=== PATIENT | female | born 1965 | race Caucasian/White ===

== ENCOUNTER 2017-05-11 14:50 | Outpatient (CLI) | payer OTHER ==
[~2017-05-11 14:50] MED LIST: ALPR-624 PO; CHOL2000 PO; CLOP75TA15 PO; FENO145T19 PO; INSU200I; INSU200I4 SQ; LEVO100T9 PO; LISI-642 PO; METF500T PO; METO50TA7 PO; NITR0.4T51 SL; PANT-47 PO; PIOG45TA5 PO; ROSU40TA PO; TRAM50TA2 PO
== END 2017-05-11 23:59 | disposition home or self-care (01) ==
LOC: VAS 14:50
PROVIDERS: ATTEND Internal Medicine Cardiovascular Disease
DX: M79.601 Pain in right arm (principal); R20.0 Anesthesia of skin; Z98.890 Other specified postprocedural states
CPT/HCPCS: 93931

== ENCOUNTER 2017-05-16 07:57 | Emergency (ER) | payer OTHER ==
[~2017-05-16] VITALS: Ht 154.9 cm; Wt 99.6 kg
[2017-05-16 08:46] LABS: BASOPHILS % (AUTO) 0.4 % (0-1); EOSINOPHILS # (AUTO) 0.1 X10'3 (0-0.9); EOSINOPHILS % (AUTO) 1.4 % (0-6); HEMATOCRIT 33.7 % (35.0-45.0); HEMOGLOBIN 11.3 g/dl (12.0-16.0); LYMPHOCYTES # (AUTO) 1.6 X10'3 (1.1-4.8); LYMPHOCYTES % (AUTO) 26.8 % (21-51); MEAN CORPUSCULAR HEMOGLOBIN 25.3 PG (27.0-31.0); MEAN CORPUSCULAR HGB CONC 33.5 % (33.0-36.5); MEAN CORPUSCULAR VOLUME 75.7 FL (78-98); MEAN PLATELET VOLUME 7.3 FL (7.4-10.4); MONOCYTES # (AUTO) 0.3 X10'3 (0-0.9); MONOCYTES % (AUTO) 5.5 % (2-12); NEUTROPHILS # (AUTO) 3.9 X10'3 (1.8-7.7); NEUTROPHILS % (AUTO) 65.9 % (42-75); PLATELET COUNT 290 X10'3 (140-440); RED BLOOD COUNT 4.45 X10'6 (4.20-5.60); RED CELL DISTRIBUTION WIDTH 16.9 % (11.5-14.5); WHITE BLOOD COUNT 5.9 X10'3 (4.5-11.0)
[2017-05-16 09:00] LABS: PARTIAL THROMBOPLASTIN TIME 29 SECONDS (22-32); PROTHROMBIN TIME 10.6 SECONDS (9.0-12.0)
[2017-05-16] MEDS ORDERED: diphenhydrAMINE 50 mg/ml inj IV ONE (09:05)
[2017-05-16 09:11] LABS: ALANINE AMINOTRANSFERASE 25 U/L (12-78); ALBUMIN 3.6 G/DL (3.4-5.0); ALKALINE PHOSPHATASE 40 IU/L (46-116); ANION GAP 6 (8-16); ASPARTATE AMINO TRANSFERASE 28 U/L (10-37); BILIRUBIN,TOTAL 0.3 MG/DL (0.1-1.0); BLOOD UREA NITROGEN 16 MG/DL (7-18); CALCIUM 9.2 MG/DL (8.5-10.1); CHLORIDE 105 MMOL/L (99-107); CREATININE 0.89 MG/DL (0.40-0.90); GLUCOSE 156 MG/DL (70-104); POTASSIUM 4.5 MMOL/L (3.5-5.1); SODIUM 139 MMOL/L (135-145); TOTAL CARBON DIOXIDE 27.7 MMOL/L (24-32); TOTAL PROTEIN 7.1 G/DL (6.4-8.2); eGFR 67 ML/MIN
[2017-05-16] MEDS ORDERED: iohexol 350MG/ML 100ml bottle IV ONE (09:31)
[2017-05-16] MEDS ORDERED: MESSAGE TO NURSING PO NR (09:56)
[2017-05-16] MEDS ORDERED: IBUP-1984 PO (10:36)
[2017-05-16 10:50] VITALS: BP 99/52
== END 2017-05-16 10:52 | disposition home or self-care (01) ==
LOC: ER 07:58
DX: R07.89 Other chest pain (principal); I25.10 Atherosclerotic heart disease of native coronary artery without angina pectoris; E78.00 Pure hypercholesterolemia, unspecified; I10 Essential (primary) hypertension; E11.9 Type 2 diabetes mellitus without complications; G89.29 Other chronic pain; Z90.49 Acquired absence of other specified parts of digestive tract; Z90.710 Acquired absence of both cervix and uterus; Z60.2 Problems related to living alone; Z91.013 Allergy to seafood; Z88.8 Allergy status to other drugs, medicaments and biological substances; Z79.84 Long term (current) use of oral hypoglycemic drugs; Z79.899 Other long term (current) drug therapy
CPT/HCPCS: 36415; 71275; 80053; 84484; 85025; 85610; 85730; 93005; 96374; 99285; J1200; J7030; Q9967

== ENCOUNTER 2017-10-08 14:40 | Emergency (ER) | payer OTHER ==
[~2017-10-08] VITALS: Ht 545.9 cm; Wt 106.0 kg
[~2017-10-08 14:40] MED LIST changes: -FENO145T19 PO; +FENO145T36 PO
[2017-10-08 14:43] VITALS: BP 121/73
== END 2017-10-08 15:25 | disposition home or self-care (01) ==
LOC: ER 14:41
DX: S60.222A Contusion of left hand, initial encounter (principal); I25.10 Atherosclerotic heart disease of native coronary artery without angina pectoris; E78.00 Pure hypercholesterolemia, unspecified; I10 Essential (primary) hypertension; E11.9 Type 2 diabetes mellitus without complications; Z90.49 Acquired absence of other specified parts of digestive tract; Z90.710 Acquired absence of both cervix and uterus; Z90.89 Acquired absence of other organs; Z98.890 Other specified postprocedural states; Z98.61 Coronary angioplasty status; Z60.2 Problems related to living alone; Z91.013 Allergy to seafood; Z79.4 Long term (current) use of insulin; Z79.899 Other long term (current) drug therapy; W01.0XXA Fall on same level from slipping, tripping and stumbling without subsequent striking against object, initial encounter; Y93.89 Activity, other specified; Y92.89 Other specified places as the place of occurrence of the external cause; Y99.8 Other external cause status; Z88.8 Allergy status to other drugs, medicaments and biological substances
CPT/HCPCS: 73130; 99284

== ENCOUNTER 2017-11-10 21:30 | Emergency (ER) | payer OTHER ==
[~2017-11-10] VITALS: Ht 154.9 cm; Wt 100.4 kg
[2017-11-10 21:55] VITALS: BP 149/71
[2017-11-10] MEDS ORDERED: GUAI10SY2 PO (23:20)
== END 2017-11-10 23:30 | disposition home or self-care (01) ==
LOC: ER 21:30
DX: J20.9 Acute bronchitis, unspecified (principal); J04.0 Acute laryngitis; I25.10 Atherosclerotic heart disease of native coronary artery without angina pectoris; E78.00 Pure hypercholesterolemia, unspecified; I10 Essential (primary) hypertension; E11.9 Type 2 diabetes mellitus without complications; G89.29 Other chronic pain; F41.9 Anxiety disorder, unspecified; Z90.49 Acquired absence of other specified parts of digestive tract; Z90.710 Acquired absence of both cervix and uterus; Z88.8 Allergy status to other drugs, medicaments and biological substances
CPT/HCPCS: 71045; 99283

== ENCOUNTER 2017-12-13 12:53 | Inpatient (IN) | payer OTHER ==
[~2017-12-13] VITALS: Ht 152.4 cm; Wt 109.5 kg
[2017-12-13 13:14] LABS: BASOPHILS % (AUTO) 0.5 % (0-1); EOSINOPHILS # (AUTO) 0.1 X10'3 (0-0.9); EOSINOPHILS % (AUTO) 1.4 % (0-6); HEMATOCRIT 37.9 % (35.0-45.0); HEMOGLOBIN 12.7 g/dl (12.0-16.0); LYMPHOCYTES # (AUTO) 2.6 X10'3 (1.1-4.8); LYMPHOCYTES % (AUTO) 40.5 % (21-51); MEAN CORPUSCULAR HEMOGLOBIN 26.4 PG (27.0-31.0); MEAN CORPUSCULAR HGB CONC 33.4 % (33.0-36.5); MEAN CORPUSCULAR VOLUME 78.8 FL (78-98); MEAN PLATELET VOLUME 7.4 FL (7.4-10.4); MONOCYTES # (AUTO) 0.4 X10'3 (0-0.9); MONOCYTES % (AUTO) 5.9 % (2-12); NEUTROPHILS # (AUTO) 3.3 X10'3 (1.8-7.7); NEUTROPHILS % (AUTO) 51.7 % (42-75); PLATELET COUNT 362 X10'3 (140-440); RED BLOOD COUNT 4.81 X10'6 (4.20-5.60); RED CELL DISTRIBUTION WIDTH 15.9 % (11.5-14.5); WHITE BLOOD COUNT 6.4 X10'3 (4.5-11.0)
[2017-12-13 13:28] LABS: INR 0.9 INR; PARTIAL THROMBOPLASTIN TIME 24 SECONDS (22-32); PROTHROMBIN TIME 9.7 SECONDS (9.0-12.0)
[2017-12-13 13:40] LABS: ALANINE AMINOTRANSFERASE 83 U/L (12-78); ALBUMIN 3.7 G/DL (3.4-5.0); ALKALINE PHOSPHATASE 71 IU/L (46-116); ANION GAP 11 (8-16); ASPARTATE AMINO TRANSFERASE 120 U/L (10-37); BILIRUBIN,TOTAL 0.3 MG/DL (0.1-1.0); BLOOD UREA NITROGEN 12 MG/DL (7-18); BUN/CREATININE RATIO 12.8 (6.6-38.0); CALCIUM 9.5 MG/DL (8.5-10.1); CHLORIDE 101 MMOL/L (99-107); CREATININE 0.94 MG/DL (0.40-0.90); GLUCOSE 156 MG/DL (70-104); POTASSIUM 4.1 MMOL/L (3.5-5.1); SODIUM 139 MMOL/L (135-145); TOTAL CARBON DIOXIDE 26.9 MMOL/L (24-32); TOTAL PROTEIN 7.3 G/DL (6.4-8.2); eGFR 63 ML/MIN
[2017-12-13] MEDS ORDERED: ketorolac trometh. 30mg/ml inj. IV ONE (13:45)
[2017-12-13] MEDS ORDERED: ASPI-1265 PO (15:35)
[2017-12-13] MEDS ORDERED: CHOL400C8 PO (15:35)
[2017-12-13] MEDS ORDERED: ALPR-624 PO (15:35)
[2017-12-13] MEDS ORDERED: LEVO300T2 PO (15:35)
[2017-12-13] MEDS ORDERED: DULO60CA45 PO (15:35)
[2017-12-13] MEDS ORDERED: nitroGLYCERIN 0.4mg SUBLingual tab SL PRN ×2 (16:20→16:35)
[2017-12-13] MEDS ORDERED: potassium Cl 20 mEq SR tablet PO PRN ×2 (16:20)
[2017-12-13] MEDS ORDERED: mag hydrox/Alum hydrox/simeth 30ml oral suspension PO PRN (16:20)
[2017-12-13] MEDS ORDERED: magnesium 4gm in 100ml NS 100 ML IV PRN (16:20)
[2017-12-13] MEDS ORDERED: magnesium hydroxide 30ml (MOM) UD suspension PO PRN (16:20)
[2017-12-13] MEDS ORDERED: acetaminophen 325mg tablet PO PRN ×2 (16:20)
[2017-12-13] MEDS ORDERED: magnesium 1gm/100ml D5W IVPB 100 ML IV PRN (16:20)
[2017-12-13] MEDS ORDERED: magnesium Cl slow-release 64mg tablet PO PRN (16:20)
[2017-12-13] MEDS ORDERED: ondansetron/PF 4mg/2ml inj IV PRN (16:20)
[2017-12-13] MEDS ORDERED: morphine 2 MG/ML inj. syringe IV PRN (16:20)
[2017-12-13] MEDS ORDERED: potassium Cl 40MEQ/NS 500ml 500 ML IV PRN ×2 (16:20)
[2017-12-13] MEDS ORDERED: glucagon, human recombinant 1mg kit SUBCUT PRN (16:35)
[2017-12-13] MEDS ORDERED: dextrose 50%-water 50ml dispensing syringe IV PRN ×2 (16:35)
[2017-12-13] MEDS ORDERED: MESSAGE TO PHARMACY PO ONE (16:35)
[2017-12-13] MEDS ORDERED: dextrose ORAL solution 15 GM/59 ML bottle PO PRN ×2 (16:35)
[2017-12-13] MEDS: normal saline 1000ml 1,000 ML IV SCH (16:46)
[2017-12-13 16:57] LABS: HEMOGLOBIN A1C 11.6 % (4.5-6.2)
[2017-12-13 17:15] LABS: H PYLORI ANTIBODY NEGATIVE (Neg)
[2017-12-13] MEDS: isosorbide mononitrate 30mg tab.SR.24H PO SCH (17:36)
[2017-12-13] MEDS: pantoprazole 40mg Tablet.DR PO SCH (17:37)
[2017-12-13 18:53] VITALS: BP 101/33
[2017-12-13 19:03] LABS: MAGNESIUM 1.8 MG/DL (1.5-2.4)
[2017-12-13] MEDS: duloxetine 30mg CAPSULE.DR PO SCH (20:37)
[2017-12-13] MEDS: ALPRAZolam 0.5mg tablet PO SCH (20:37)
[2017-12-13] MEDS ORDERED: temazepam 15mg capsule PO PRN (21:00)
[2017-12-13] MEDS: insulin glargine (Lantus) pen - multi-dose SQ SCH (21:00)
[2017-12-13] MEDS: morphine 2 MG/ML inj. syringe IV PRN (21:58)
[2017-12-13 23:00] VITALS: BP 94/44
[2017-12-14] VITALS (14 sets, daily range): BP systolic 90–121; BP diastolic 43–76
[2017-12-14] MEDS: traMADol 50MG tablet PO PRN ×3 (01:24→22:09)
[2017-12-14 02:12] LABS: HEMATOCRIT 31.3 % (35.0-45.0); HEMOGLOBIN 10.4 g/dl (12.0-16.0); MEAN CORPUSCULAR HGB CONC 33.1 % (33.0-36.5); MEAN CORPUSCULAR VOLUME 78.7 FL (78-98); MEAN PLATELET VOLUME 7.8 FL (7.4-10.4); PLATELET COUNT 254 X10'3 (140-440); RED BLOOD COUNT 3.98 X10'6 (4.20-5.60); RED CELL DISTRIBUTION WIDTH 15.8 % (11.5-14.5); WHITE BLOOD COUNT 4.4 X10'3 (4.5-11.0)
[2017-12-14 02:31] LABS: ALBUMIN 2.9 G/DL (3.4-5.0); ANION GAP 8 (8-16); BLOOD UREA NITROGEN 21 MG/DL (7-18); BUN/CREATININE RATIO 21.4 (6.6-38.0); CALCIUM 8.8 MG/DL (8.5-10.1); CHLORIDE 102 MMOL/L (99-107); CHOL/HDL RATIO 6.3 (0.00-4.99); CHOLESTEROL 171 MG/DL (0-200); CREATININE 0.98 MG/DL (0.40-0.90); GLUCOSE 332 MG/DL (70-104); HDL CHOLESTEROL 27 MG/DL (35-60); LDL CHOLESTEROL 114 MG/DL (50-100); MAGNESIUM 1.6 MG/DL (1.5-2.4); POTASSIUM 4.2 MMOL/L (3.5-5.1); SODIUM 138 MMOL/L (135-145); TOTAL CARBON DIOXIDE 27.9 MMOL/L (24-32); TRIGLYCERIDES 224 MG/DL (20-135); eGFR 60 ML/MIN
[2017-12-14] MEDS ORDERED: pantoprazole 40mg Tablet.DR PO SCH (08:00)
[2017-12-14] MEDS: aspirin 81mg tablet.DR PO SCH (08:00)
[2017-12-14] MEDS: K and/or MAG REPLACEMENT MC SCH (08:00)
[2017-12-14] MEDS: fenofibrate 145mg tablet PO SCH (08:57)
[2017-12-14] MEDS: metoprolol succinate 25mg (24-HOUR) SR. Tablet PO SCH (08:58)
[2017-12-14] MEDS: duloxetine 30mg CAPSULE.DR PO SCH ×2 (08:59→21:55)
[2017-12-14] MEDS: isosorbide mononitrate 30mg tab.SR.24H PO SCH (09:00)
[2017-12-14] MEDS: pioglitazone 45mg tablet PO SCH (09:00)
[2017-12-14] MEDS: clopidogrel 75mg tablet PO SCH (09:00)
[2017-12-14] MEDS: atorvastatin 20mg tablet PO SCH (09:00)
[2017-12-14] MEDS: lisinopril 2.5mg tablet PO SCH (09:01)
[2017-12-14] MEDS: ALPRAZolam 0.5mg tablet PO SCH ×2 (09:01→21:56)
[2017-12-14] MEDS: pantoprazole 40mg Tablet.DR PO SCH (09:08)
[2017-12-14] MEDS: levoTHYROXINE 100mcg tablet PO SCH (09:09)
[2017-12-14] MEDS: insulin Lispro (HumaLOG) vial - multi-dose SQ SCH ×3 (09:22→22:03)
[2017-12-14] MEDS: morphine 2 MG/ML inj. syringe IV PRN ×2 (10:49→18:21)
[2017-12-14] MEDS ORDERED: fentaNYL/PF 50MCG/1 ML 2ML syringe ONE (15:55)
[2017-12-14] MEDS ORDERED: heparin 1,000unit/ml 10ml vial 10 ML ONE (15:56)
[2017-12-14] MEDS ORDERED: midazolam 2 mg/2 ml injection ONE (15:56)
[2017-12-14] MEDS ORDERED: iohexol 350MG/ML 100ml bottle IV ONE (15:56)
[2017-12-14] MEDS ORDERED: nitroGLYCERIN-Tridil 50MG/D5W 250 ML IV ONE (15:56)
[2017-12-14] MEDS ORDERED: iohexol 350 MG/ML 50ML vial IV ONE (15:56)
[2017-12-14] MEDS ORDERED: LIDOcaine 1% w/EPI 1:100,000 30ml vial (MDV) ONE (15:58)
[2017-12-14] MEDS ORDERED: hydrocortisone sod succ/PF 100mg/2ml inj. ONE (16:50)
[2017-12-14] MEDS ORDERED: diphenhydrAMINE 50 mg/ml inj ONE (16:50)
[2017-12-14] MEDS ORDERED: OXAZEpam 15mg capsule PO PRN (18:55)
[2017-12-14] MEDS ORDERED: HYDROcodone/acetaminophen 10/325mg tab PO PRN (18:55)
[2017-12-14] MEDS ORDERED: HYDROcodone/acetaminophen 5mg/325mg tablet PO PRN (18:55)
[2017-12-14] MEDS: insulin glargine (Lantus) pen - multi-dose SQ SCH (22:01)
[2017-12-14] MEDS: normal saline 1000ml 1,000 ML IV SCH (22:57)
[2017-12-15 01:45] VITALS: BP 103/60
[2017-12-15 03:00] VITALS: BP 102/37
[2017-12-15 05:46] VITALS: BP 116/58
[2017-12-15 05:54] LABS: HEMATOCRIT 31.9 % (35.0-45.0); HEMOGLOBIN 10.6 g/dl (12.0-16.0); MEAN CORPUSCULAR HEMOGLOBIN 26.1 PG (27.0-31.0); MEAN CORPUSCULAR HGB CONC 33.2 % (33.0-36.5); MEAN CORPUSCULAR VOLUME 78.6 FL (78-98); PLATELET COUNT 181 X10'3 (140-440); RED BLOOD COUNT 4.06 X10'6 (4.20-5.60); RED CELL DISTRIBUTION WIDTH 16.2 % (11.5-14.5)
[2017-12-15 06:00] VITALS: BP 104/46
[2017-12-15 06:14] LABS: ALANINE AMINOTRANSFERASE 60 U/L (12-78); ALBUMIN 2.9 G/DL (3.4-5.0); ALBUMIN/GLOBULIN RATIO 0.9 (1.1-1.5); ALKALINE PHOSPHATASE 60 IU/L (46-116); ANION GAP 10 (8-16); ASPARTATE AMINO TRANSFERASE 69 U/L (10-37); BILIRUBIN,TOTAL 0.3 MG/DL (0.1-1.0); BLOOD UREA NITROGEN 14 MG/DL (7-18); BUN/CREATININE RATIO 19.2 (6.6-38.0); CALCIUM 8.5 MG/DL (8.5-10.1); CHLORIDE 104 MMOL/L (99-107); CREATININE 0.73 MG/DL (0.40-0.90); GLUCOSE 212 MG/DL (70-104); MAGNESIUM 1.8 MG/DL (1.5-2.4); POTASSIUM 4.5 MMOL/L (3.5-5.1); SODIUM 139 MMOL/L (135-145); TOTAL CARBON DIOXIDE 24.7 MMOL/L (24-32); eGFR 84 ML/MIN
[2017-12-15 06:15] LABS: CHOL/HDL RATIO 5.9 (0.00-4.99); CHOLESTEROL 165 MG/DL (0-200); HDL CHOLESTEROL 28 MG/DL (35-60); LDL CHOLESTEROL 113 MG/DL (50-100); TRIGLYCERIDES 198 MG/DL (20-135)
[2017-12-15] MEDS: isosorbide mononitrate 30mg tab.SR.24H PO SCH ×3 (08:00→10:48)
[2017-12-15] MEDS ORDERED: vitamin D (cholecalciferol) 1,000 unit tablet PO SCH (08:00)
[2017-12-15] MEDS: K and/or MAG REPLACEMENT MC SCH (08:00)
[2017-12-15] MEDS: fenofibrate 145mg tablet PO SCH (08:23)
[2017-12-15] MEDS: aspirin 81mg tablet.DR PO SCH (08:23)
[2017-12-15] MEDS: pioglitazone 45mg tablet PO SCH (08:23)
[2017-12-15] MEDS: ALPRAZolam 0.5mg tablet PO SCH (08:24)
[2017-12-15] MEDS: lisinopril 2.5mg tablet PO SCH (08:24)
[2017-12-15] MEDS: duloxetine 30mg CAPSULE.DR PO SCH (08:24)
[2017-12-15] MEDS: atorvastatin 20mg tablet PO SCH (08:24)
[2017-12-15] MEDS: pantoprazole 40mg Tablet.DR PO SCH (08:24)
[2017-12-15] MEDS: metoprolol succinate 25mg (24-HOUR) SR. Tablet PO SCH (08:25)
[2017-12-15] MEDS: clopidogrel 75mg tablet PO SCH (08:27)
[2017-12-15] MEDS: levoTHYROXINE 100mcg tablet PO SCH (08:28)
[2017-12-15] MEDS: insulin Lispro (HumaLOG) vial - multi-dose SQ SCH ×2 (08:38→12:23)
[2017-12-15] MEDS: normal saline 1000ml 1,000 ML IV SCH (08:57)
[2017-12-15] MEDS ORDERED: ISOS30TA6 PO (10:42)
[2017-12-15 10:47] VITALS: BP 105/51
[2017-12-15 11:00] VITALS: BP 107/54
[2017-12-15] MEDS: traMADol 50MG tablet PO PRN (12:20)
== END 2017-12-15 13:18 | disposition home or self-care (01) | DRG 287 ==
LOC: ER 12:53 → ED HOLD 16:17 → PCU 3S 18:45
PROVIDERS: ADMIT Family Medicine; ATTEND Internal Medicine
PROC: 4A023N7 Measurement of Cardiac Sampling and Pressure, Left Heart, Percutaneous Approach (ICD-10-PCS; principal; 2017-12-14)
PROC: B2111ZZ Fluoroscopy of Multiple Coronary Arteries using Low Osmolar Contrast (ICD-10-PCS; 2017-12-14)
PROC: B2151ZZ Fluoroscopy of Left Heart using Low Osmolar Contrast (ICD-10-PCS; 2017-12-14)
DX: I25.119 Atherosclerotic heart disease of native coronary artery with unspecified angina pectoris (principal); Z68.42 Body mass index [BMI] 45.0-49.9, adult; N17.9 Acute kidney failure, unspecified; E03.9 Hypothyroidism, unspecified; E11.9 Type 2 diabetes mellitus without complications; E66.9 Obesity, unspecified; E78.00 Pure hypercholesterolemia, unspecified; N18.9 Chronic kidney disease, unspecified; I12.9 Hypertensive chronic kidney disease with stage 1 through stage 4 chronic kidney disease, or unspecified chronic kidney disease; E78.5 Hyperlipidemia, unspecified; F41.9 Anxiety disorder, unspecified; I49.3 Ventricular premature depolarization; Z90.710 Acquired absence of both cervix and uterus; Z95.5 Presence of coronary angioplasty implant and graft; Z91.018 Allergy to other foods; Z91.013 Allergy to seafood; Z85.6 Personal history of leukemia; Z87.442 Personal history of urinary calculi
CPT/HCPCS: 36415; 71045; 80048; 80053; 80061; 82948; 83036; 83735; 84100; 84443; 84484; 85025; 85027; 85610; 85730; 86677; 87070; 93005; 93458; 96374; 99152; 99153; 99285; A6257; C1760; C1769; J1200; J1644; J1720; J1815; J1885; J2250; J2270; J2405; J3010; J3490; J7030; Q9967

== ENCOUNTER 2018-05-20 18:31 | Emergency (ER) | payer OTHER ==
[~2018-05-20] VITALS: Ht 152.4 cm; Wt 76.5 kg
[~2018-05-20 18:31] MED LIST changes: +ASPI-1265 PO; -CHOL2000 PO; +CHOL400C8 PO; +DULO60CA45 PO; +ISOS30TA6 PO; -LEVO100T9 PO; +LEVO300T2 PO; -PIOG45TA5 PO
[2018-05-20 18:36] VITALS: BP 137/80
[2018-05-20] MEDS ORDERED: ketorolac tromethamine 15mg/ml inj. IV ONE (19:45)
[2018-05-20] MEDS ORDERED: normal saline 1000ml 1,000 ML IV ONE (19:45)
[2018-05-20] MEDS ORDERED: proCHLORperazine 10 MG/2 ml inj IV ONE (19:45)
[2018-05-20] MEDS ORDERED: diphenhydrAMINE 50 mg/ml inj IV ONE (19:45)
[2018-05-20] MEDS ORDERED: LORazepam 2 mg/ml vial IV ONE (20:30)
[2018-05-20 20:31] LABS: BASOPHILS % (AUTO) 0.5 % (0-1); EOSINOPHILS % (AUTO) 0.8 % (0-6); HEMATOCRIT 30.9 % (35.0-45.0); HEMOGLOBIN 10.4 g/dl (12.0-16.0); LYMPHOCYTES # (AUTO) 1.6 X10'3 (1.1-4.8); LYMPHOCYTES % (AUTO) 34.1 % (21-51); MEAN CORPUSCULAR HEMOGLOBIN 26.1 PG (27.0-31.0); MEAN CORPUSCULAR HGB CONC 33.6 g/dL (33.0-36.5); MEAN CORPUSCULAR VOLUME 77.8 FL (78-98); MEAN PLATELET VOLUME 7.3 FL (7.4-10.4); MONOCYTES # (AUTO) 0.3 X10'3 (0-0.9); MONOCYTES % (AUTO) 6.2 % (2-12); NEUTROPHILS # (AUTO) 2.8 X10'3 (1.8-7.7); NEUTROPHILS % (AUTO) 58.4 % (42-75); PLATELET COUNT 221 X10'3 (140-440); RED BLOOD COUNT 3.97 X10'6 (4.20-5.60); WHITE BLOOD COUNT 4.7 X10'3 (4.5-11.0)
[2018-05-20 20:36] LABS: ALANINE AMINOTRANSFERASE 29 U/L (12-78); ALBUMIN/GLOBULIN RATIO 1.1 (1.1-1.5); ALKALINE PHOSPHATASE 98 IU/L (46-116); ANION GAP 8 (8-16); ASPARTATE AMINO TRANSFERASE 24 U/L (10-37); BILIRUBIN,TOTAL 0.2 MG/DL (0.1-1.0); BLOOD UREA NITROGEN 13 MG/DL (7-18); CALCIUM 7.8 MG/DL (8.5-10.1); CHLORIDE 108 MMOL/L (99-107); CREATININE 0.65 MG/DL (0.40-0.90); GLUCOSE 119 MG/DL (70-104); POTASSIUM 3.3 MMOL/L (3.5-5.1); SODIUM 140 MMOL/L (135-145); TOTAL CARBON DIOXIDE 24.3 MMOL/L (24-32); TOTAL PROTEIN 5.7 G/DL (6.4-8.2); eGFR > 90 ML/MIN
== END 2018-05-20 20:59 | disposition home or self-care (01) ==
LOC: ER 18:31
DX: R51 Headache (principal); H53.149 Visual discomfort, unspecified; I25.10 Atherosclerotic heart disease of native coronary artery without angina pectoris; E78.00 Pure hypercholesterolemia, unspecified; I10 Essential (primary) hypertension; E11.9 Type 2 diabetes mellitus without complications; G89.29 Other chronic pain; Z98.61 Coronary angioplasty status; Z90.49 Acquired absence of other specified parts of digestive tract; Z90.710 Acquired absence of both cervix and uterus; Z91.013 Allergy to seafood; Z88.8 Allergy status to other drugs, medicaments and biological substances; Z79.82 Long term (current) use of aspirin; Z79.4 Long term (current) use of insulin; Z79.84 Long term (current) use of oral hypoglycemic drugs; Z79.899 Other long term (current) drug therapy; Z60.2 Problems related to living alone
CPT/HCPCS: 36415; 80053; 85025; 96374; 96375; 99283; J0780; J1200; J1885; J2060; J7030

== ENCOUNTER 2018-12-29 10:53 | Emergency (ER) | payer MEDICAID ==
[~2018-12-29] VITALS: Ht 154.9 cm; Wt 79.5 kg
--- NOTE | 2018-12-29 11:21 | NUR ---
PT HAS GIVEN PERMISSION FOR ONLY HER MOTHER; DONOVAN LINARES, TO RECEIVE STATUS INFORMATION. PASSWORD IS POOKA
--- NOTE | 2018-12-29 11:59 | NUR ---
Pt's pulse ox and heart rate monitored for approximately 20 minutes. Pulse ox maintained 96-98% with heart rate in the mid 80's upon arrival to the ED bed. Pt is currently calm and cooperative.
[2018-12-29 12:19] LABS: URINE HCG NEGATIVE (NEG)
[2018-12-29 12:20] LABS: CLARITY,URINE CLOUDY (Clear); COLOR,URINE YELLOW (Yellow); GLUCOSE, URINE 250 mg/dl (Neg); KETONES,URINE NEGATIVE (Neg); LEUKOCYTE ESTERASE ,URINE NEGATIVE (Neg); NITRITES, URINE NEGATIVE (Neg); OCCULT BLOOD,URINE NEGATIVE (Neg); PH,URINE 5.5 (4.8-8.0); PROTEIN,URINE NEGATIVE (Neg); UROBILINOGEN,URINE 0.2 E.U/dL (0.2-1.0)
[2018-12-29 12:22] LABS: UA COLLECTION TYPE CLN CATCH MIDSTREAM
[2018-12-29 12:23] LABS: BASOPHILS % (AUTO) 0.4 % (0-1); EOSINOPHILS % (AUTO) 0.8 % (0-6); HEMATOCRIT 41.1 % (35.0-45.0); HEMOGLOBIN 13.7 g/dl (12.0-16.0); LYMPHOCYTES # (AUTO) 1.8 X10'3 (1.1-4.8); MEAN CORPUSCULAR HGB CONC 33.4 g/dL (33.0-36.5); MEAN CORPUSCULAR VOLUME 83.9 FL (78-98); MEAN PLATELET VOLUME 6.9 FL (7.4-10.4); MONOCYTES # (AUTO) 0.2 X10'3 (0-0.9); MONOCYTES % (AUTO) 4.3 % (2-12); NEUTROPHILS # (AUTO) 3.3 X10'3 (1.8-7.7); NEUTROPHILS % (AUTO) 61.5 % (42-75); PLATELET COUNT 223 X10'3 (140-440); RED BLOOD COUNT 4.89 X10'6 (4.20-5.60); RED CELL DISTRIBUTION WIDTH 14.8 % (11.5-14.5); WHITE BLOOD COUNT 5.4 X10'3 (4.5-11.0)
[2018-12-29 12:25] LABS: URINE AMPHETAMINE SCREEN NEGATIVE (Neg); URINE BARBITUATE SCREEN NEGATIVE (Neg); URINE BENZODIAZEPINES SCREEN POSITIVE (Neg); URINE CANNABINOID SCREEN NEGATIVE (Neg); URINE COCAINE SCREEN NEGATIVE (Neg); URINE METHADONE SCREEN NEGATIVE (Neg); URINE OPIATE SCREEN NEGATIVE (Neg); URINE PHENCYCLIDINE SCREEN NEGATIVE (Neg)
[2018-12-29 12:30] LABS: ALANINE AMINOTRANSFERASE 21 U/L (12-78); ALBUMIN 3.8 G/DL (3.4-5.0); ALKALINE PHOSPHATASE 94 IU/L (46-116); ANION GAP 10 (8-16); ASPARTATE AMINO TRANSFERASE 11 U/L (10-37); BILIRUBIN,TOTAL 0.2 MG/DL (0.1-1.0); BLOOD UREA NITROGEN 10 MG/DL (7-18); BUN/CREATININE RATIO 13.5 (6.6-38.0); CALCIUM 8.8 MG/DL (8.5-10.1); CHLORIDE 105 MMOL/L (99-107); CREATININE 0.74 MG/DL (0.40-0.90); GLUCOSE 161 MG/DL (70-104); POTASSIUM 3.9 MMOL/L (3.5-5.1); SODIUM 141 MMOL/L (135-145); TOTAL PROTEIN 7.5 G/DL (6.4-8.2); eGFR 83 ML/MIN
[2018-12-29 12:30] LABS: SQUAMOUS EPITHELIAL CELL,UR MANY /LPF (FEW)
[2018-12-29 12:32] LABS: BACTERIA,URINE 3+ /HPF (Neg); CAL OXALATE CRYSTALS 1+ /HPF (NEGATIVE); RBC,URINE 0-2 /HPF (0-2); WBC,URINE 0-4 /HPF (0-4)
[2018-12-29] MEDS ORDERED: aspirin 81mg tab.chew PO ONE (12:50)
[2018-12-29 13:02] LABS: ETHANOL < 0.010 GM/DL (0.0-0.010)
--- NOTE | 2018-12-29 13:17 | NUR ---
AFTER SERVING THE PT LUNCH AND GETTING HER FRESH WATER (WHICH SHE REFUSEDTO EAT), I NOTICED SHE HAD WRAPPED A PART OF THE BLANKET TIGHTLEY AROUND HER NECK. I ASKED PT TO LOOSEN THE BLANKET AND TOLD HER SHE CANNOT HAVE IT AROUND HER NECK. PT NURSE ROSA MADE AWARE AND AT BEDSIDE.
--- NOTE | 2018-12-29 13:20 | NUR ---
SITTER NOTIFIED RN THAT PT HAS BLANKET WRAPPED AROUND HER NECK. PT FOUND TO HAVE FLANNEL BLANKET TIGHTLY TWISTED AND TIGHTLY WRAPPED AROUND HER NECK, BLANKET WAS REMOVED FROM AROUND HER NECK, ADDITIONAL BLANKETS WERE REMOVED FROM THE BED (PT ALLOWED 1 BLANKET ONLY) AND SITTER IS ACTIVELY AT BEDSIDE FOR 1:[address] MACKENZIE NOTIFIED, NO FURTHER ORDERS RECEIVED
[2018-12-29] MEDS ORDERED: TRAM50TA2 PO (13:27)
[2018-12-29] MEDS ORDERED: ALPR1TAB2 PO (13:27)
[2018-12-29 13:32] LABS: ACETAMINOPHEN < 2.0 UG/ML (10-30)
--- NOTE | 2018-12-29 13:40 | NUR ---
PT WOKE UP AFTER HAVING AN EKG AND STATES SHE IS "CRAWLING OUT OF HER SKIN AND HAVING A PANIC ATTACK". PT REQUESTED TO CALL HER MOTHER DONOVAN. DONOVAN'S NUMBER WAS DIALED AND HER FATHER FLAKO PICKED UP. PT IS CURRENTLY SPEAKING WITH HER FATHER, TEARFUL, AND COMPLAINING OF A HEADACHE. PT STATES "SHE JUST DOESN'T WANT TO BE HERE NO MORE AND WANTS SOMETHING FOR THE PANIC ATTACK".
--- NOTE | 2018-12-29 13:46 | NUR ---
PT STARTING TO EAT HER LUNCH.
--- NOTE | 2018-12-29 14:05 | NUR ---
Medicated as ordered with aspirin for cardiac protocols. Pt requested medication for anxiety and ED provider aware, no orders at this time. Pt's reported panic attack has improved at this time.
--- NOTE | 2018-12-29 14:11 | NUR ---
PT LAYING IN BED ROCKING BACK AND FORTH ON SIDE.
--- NOTE | 2018-12-29 14:26 | NUR ---
PT CONTINUES TO ROCK BACK AND FORTH ON HER SIDE.
--- NOTE | 2018-12-29 14:35 | NUR ---
PT HAS STOPPED ROCKING BACK AND FORTH AND APPEARS ASLEEP.
--- NOTE | 2018-12-29 14:58 | NUR ---
Pt is resting with eyes closed and respirations even and unlabored at this time. Pt has a sitter at bedside for constant observation.
--- NOTE | 2018-12-29 15:35 | NUR ---
PT PACKET FAXED TO THE [facility]
--- NOTE | 2018-12-29 15:39 | NUR ---
CONFIRMED [facility] RECIEVED PT PACKET.
--- NOTE | 2018-12-29 16:30 | NUR ---
Pt resting, no change in condition. Sitter at foot of bed.
--- NOTE | 2018-12-29 17:30 | NUR ---
Pt resting with even and unlabored respirations, vitals stable, no change in condition, sitter nearby.
--- NOTE | 2018-12-29 19:30 | NUR ---
LONG DISCUSSION REGARDING PATIENT'S CURRENT SITUATION. PATIENT STATES THAT SHE IS TOTALLY OVERWHELMED WITH HER EXTENDED FAMILY LIVING WITH HER WELL HER DAUGHTER WHO "TELLS ME OFF ALL THE TIME". PATIIENT VERBALIZED THAT SHE CAN NOT "DO IT ALL, BUT AT THE SAME TIME I FEEL LIKE A FAILURE" PATIENT REPORTS THAT SHE CALLED HER MOTHER WHO BROUGHT HER TO THE HOSPITAL. PATIENT DENIES SI, HI, HALLUCINATIONS AT THIS TIME. SHE REPORTS TAKING 2 MG OF XANAX AND 100 MG OF BENADRYL FOR TYHE LAST FOR DAYS AND GAVE HER DOG A BENADRYL "TO TAKE HIM WITH ME"
--- NOTE | 2018-12-29 20:33 | NUR ---
Pt's mother telephone @ 2030 hrs. Pt's mother was told that telephone hours are between 0800 and 2000 hrs. Pt's mother will telephone in the AM.
--- NOTE | 2018-12-29 21:00 | NUR ---
TALKED WITH PATIENT WHO REPORTS INCREASING ANXIETY. DISCUSSED PLAN OF CARE WITH DR CARRION
[2018-12-29] MEDS ORDERED: LORazepam 1 MG tablet PO ONE (21:20)
--- NOTE | 2018-12-29 23:01 | NUR ---
PATIENT APPEARS TO BE SLEEPING ON HER LEFT SIDE RR EVEN AND UNLABORED
--- NOTE | 2018-12-30 01:12 | NUR ---
PATIENT APPEARS TO BE SLEEPING RREVEN AND UNLABORED
--- NOTE | 2018-12-30 03:02 | NUR ---
PATIENT APPEARS TO BE SLEEPING: RR EVEN AND UNLABORED: POSITION IS ON HER STOMACH
--- NOTE | 2018-12-30 05:31 | NUR ---
PATIENT APPEARS TO BE SLEEPING ON HER BACK, RR EVEN AND UNLABORED.
[2018-12-30] MEDS: levoTHYROXINE 25mcg tablet PO SCH (08:42)
--- NOTE | 2018-12-30 08:45 | NUR ---
AWAKE AND EATING BREAKFAST. COOPERATIVE WITH CARE. DISCUSSED LAB VALUES WITH PATIENT. DENIES NEEDS AT THIS TIME.
--- NOTE | 2018-12-30 10:05 | NUR ---
PT MANA CALLED REQUESTING TO SPEAK WITH HIS , PT WISHED TO SPEAK WITH HIM, BECAME TEARFUL, AND BEGAN SPEAKING WITH HIM. DISCUSSION OF BILLS AND WHO HAS MONEY, "I CAN TELL YOU'RE NOT HAPPY WITH ME RIGHT NOW". IN THE MIDDLE OF THE CONVERSATION, PT HUNG UP THE PHONE. I WALKED OVER TO GET THE PHONE, SHE WAS TEARFUL, AND STATED "I DON'T KNOW IF I WANT TO SPEAK WITH HIM AGAIN IF HE CALLS". PT WAS INFORMED IT IS HER CHOICE WHO SHE SPEAKS WITH.
--- NOTE | 2018-12-30 10:27 | NUR ---
Break RN:Patient awake,on high fowlers.
--- NOTE | 2018-12-30 11:05 | NUR ---
RESTING IN BED, DOZING ON AND OFF. NO DISTRESS NOTED AT THIS TIME.
--- NOTE | 2018-12-30 11:31 | NUR ---
PT WAS REQUESTING A POPSICLE, WE DID NOT HAVE ANY. SHE REQUESTED A YOGURT AND CHEESE STICK. PT WAS ALSO GIVEN WARM BLANKET.
--- NOTE | 2018-12-30 12:45 | NUR ---
PT VISITING WITH PARENTS, BROTHER AND BRO CALMLY AND PLEASANTLY. NO OUT BURST.
--- NOTE | 2018-12-30 13:20 | NUR ---
RELIEVING RN FOR BREAK, PT IS SITTING ON BED EATING LUNCH, FAMILY AT BEDSIDE, PT IS CALM, QUIET AND COOPERATIVE
--- NOTE | 2018-12-30 13:45 | NUR ---
PT FAMILY LEFT AND PT STATES THE VISIT WENT WELL AND IS SMILING. PT IS REQUESTING ASPIRIN FOR HEAD AHCE.
--- NOTE | 2018-12-30 13:45 | NUR ---
VISITORS LEFT. PT C/O SALGADO. WILL ASK DOCTOR FOR ORDER.
--- NOTE | 2018-12-30 13:51 | NUR ---
SPOKE WITH DR. LILIA DELGADILLO TYLENOL 500MG X1
--- NOTE | 2018-12-30 13:54 | NUR ---
DR. RODRIGUES CHANGED THE ORDER FROM TYLENOL TO MOTRIN 200MG. SINCE SHE OD ON EXCEDRIN SHE DOESNT WANT TO GIVE THE PT ANYMORE TYLENOL
[2018-12-30] MEDS ORDERED: ibuprofen 200mg tablet PO ONE (13:55)
--- NOTE | 2018-12-30 14:50 | NUR ---
RELIEVING RN FOR BREAK, PT RESTING IN BED ON HER RIGHT SIDE, NO NEEDS AT THIS TIME. DOES NOT SEEM TO BE IN ANY RESPIRATORY DISTRESS.
--- NOTE | 2018-12-30 18:30 | NUR ---
Patient awake and reclining in bed. No distress observed. Continue to monitor.
--- NOTE | 2018-12-30 20:05 | NUR ---
Patient awake and RN did a 1:1. Patient tearful. Patient states she doesn't want to kill herself but she doesn't want to live. Patient states she lives with her children and her ex-. Patient crying and states she has been here for 2 days and her children (17 and 24) have not called her to see how she is doing. Patient states they don't care about her. She wants to live with her mother for a little bit to save some money and then [place] sister. Patient had trouble sleeping last night and was given Ativan at 2238. RN to request medication for patient to sleep and for anxiety. Continue to monitor.
[2018-12-30] MEDS ORDERED: diphenhydrAMINE 25mg capsule PO ONE (20:50)
[2018-12-30] MEDS ORDERED: LORazepam 1 MG tablet PO ONE (20:50)
--- NOTE | 2018-12-30 21:17 | NUR ---
Iva from the [facility] office called and patient was accepted at [facility] for tomorrow. Unknown time as of yet.
--- NOTE | 2018-12-30 21:19 | NUR ---
Accepting information. Dr Gonsalez accepted from [facility].
--- NOTE | 2018-12-30 22:43 | NUR ---
Patient sleeping on left side. No distress observed. Continue to monitor.
--- NOTE | 2018-12-31 | NUR ---
RN assumed care of pt. Pt. sleeping. No signs of distress. will continue to monitor.
--- NOTE | 2018-12-31 02:00 | NUR ---
Pt. sleeping. breathing rate and rhythm pattern is normal. Will continue to monitor.
--- NOTE | 2018-12-31 04:00 | NUR ---
Pt. laying on back asleep. Normal rate and rhythm of breathing. Will continue to monitor.
[2018-12-31 05:30] VITALS: BP 108/61
--- NOTE | 2018-12-31 06:00 | NUR ---
Pt. sleeping on right side. Normal rate and rhythm of respiration.
--- NOTE | 2018-12-31 06:42 | NUR ---
Patient sleeping on right side. No distress observed. Continue to monitor.
[2018-12-31] MEDS: levoTHYROXINE 25mcg tablet PO SCH (07:49)
--- NOTE | 2018-12-31 08:20 | NUR ---
Patient sitting up and eating. No distress observed. Continue to monitor.
--- NOTE | 2018-12-31 09:24 | NUR ---
Patient reclining in bed. No distress observed. Continue to monitor.
--- NOTE | 2018-12-31 10:15 | NUR ---
Patient's brother and [id number] visiting with patient. Continue to monitor.
--- NOTE | 2018-12-31 10:54 | NUR ---
PT MANA CALLED REQUESTING TO SPEAK TO THE PT, PT WISHED TO SPEAK TO HIM, PT TEARFUL. SHE STATES "WHEN I LEAVE HERE, I HAVE TO GO TO MY MOMS AND I WANT TO TAKE MY DOG WITH ME". PT REMAINS TEARFUL AFTER HANGING UP THE PHONE.
[2018-12-31] MEDS ORDERED: SYN0.088T PO (18:25)
== END 2018-12-31 12:20 ==
LOC: ER 10:54
DX: T45.0X2A Poisoning by antiallergic and antiemetic drugs, intentional self-harm, initial encounter (principal); T39.8X2A Poisoning by other nonopioid analgesics and antipyretics, not elsewhere classified, intentional self-harm, initial encounter; T42.4X2A Poisoning by benzodiazepines, intentional self-harm, initial encounter; T50.992A Poisoning by other drugs, medicaments and biological substances, intentional self-harm, initial encounter; R07.89 Other chest pain; I25.10 Atherosclerotic heart disease of native coronary artery without angina pectoris; E78.00 Pure hypercholesterolemia, unspecified; I10 Essential (primary) hypertension; E11.9 Type 2 diabetes mellitus without complications; G89.29 Other chronic pain; F41.9 Anxiety disorder, unspecified; Z98.61 Coronary angioplasty status; Z90.49 Acquired absence of other specified parts of digestive tract; Z90.710 Acquired absence of both cervix and uterus; Z98.84 Bariatric surgery status; Z98.890 Other specified postprocedural states; Z60.2 Problems related to living alone; Z88.8 Allergy status to other drugs, medicaments and biological substances; Z91.013 Allergy to seafood; Z79.82 Long term (current) use of aspirin; Z79.4 Long term (current) use of insulin; Z79.84 Long term (current) use of oral hypoglycemic drugs; Z79.899 Other long term (current) drug therapy; Y92.89 Other specified places as the place of occurrence of the external cause
CPT/HCPCS: 36415; 71045; 80053; 80305; 80320; 80329; 81001; 81025; 84443; 84484; 85025; 93005; 99285; Q0163

== ENCOUNTER 2018-12-31 09:35 | Inpatient (IN) | payer MEDICAID ==
[~2018-12-31] VITALS: Ht 154.9 cm; Wt 79.5 kg
[~2018-12-31 09:35] MED LIST changes: -ALPR-624 PO; +ALPR1TAB2 PO; -ASPI-1265 PO; -CHOL400C8 PO; -CLOP75TA15 PO; -DULO60CA45 PO; -FENO145T36 PO; -INSU200I; -INSU200I4 SQ; -ISOS30TA6 PO; -LEVO300T2 PO; -LISI-642 PO; -METF500T PO; -METO50TA7 PO; -NITR0.4T51 SL; -PANT-47 PO; -ROSU40TA PO
[2018-12-31] MEDS ORDERED: loperamide 2mg capsule PO PRN (12:50)
[2018-12-31] MEDS ORDERED: hydrOXYzine 25 MG tablet PO PRN (12:50)
[2018-12-31] MEDS ORDERED: mag hydrox/Alum hydrox/simeth 30ml oral suspension PO PRN (12:50)
[2018-12-31] MEDS ORDERED: magnesium hydroxide 30ml (MOM) UD suspension PO PRN (12:50)
[2018-12-31] MEDS: acetaminophen 325mg tablet PO PRN (14:13)
[2018-12-31] MEDS: LORazepam 1 MG tablet PO PRN ×2 (14:19→20:50)
--- NOTE | 2018-12-31 17:46 | NUR ---
Admission note: Pt is admitted from [facility] ER on a 5150 for DTS/ SI. Per 5150 paperwork, Pt stated if she were to go home right now, she would "probably immediately try killing myself". She is admitted to the floor at 1220, ambulating herself in no observed distress. Skin assessment completed by this senior copywriter and PER Granger. No skin concerns observed. Pt is oriented to unit. Paperwork signed by patient and questions were answered. MRSA swab obtained and sent to lab. Inventory was completed and signed by unit tech and Pt. No contraband found. Pt is a non-smoker and declines need for smoking cessation education. Pt states she is currently experiencing SI and states that she will "cut my throat or hang myself". She also reports AH commanding her to hurt herself and tell her that she is worthless. Pt ate lunch in her room. She reported feeling very anxious and stated that her head hurt, PRN Ativan and Tylenol were administered. Pt is seen resting in bed peacefully after this. Will continue to monitor this shift. Addendum: 12/31/18 at 1802 by Vickie Hall RN Pt has a PMH of HTN, hyperlipidemia, Lady's/hypothyroidism, stent placement r/t 85% blockage in her heart. She recently had labs which showed severe hypothyroidism and hyperlipidemia. She reports that she has not been taking her medications for 8 months as she had a gastric sleeve 1 year ago and felt "better".
[2018-12-31] MEDS ORDERED: SYN0.088T PO (18:25)
[2018-12-31 19:57] VITALS: BP 145/79
[2018-12-31] MEDS ORDERED: traZODone 50mg tablet PO ONE (22:20)
--- NOTE | 2018-12-31 23:08 | NUR ---
Nursing Progress Note: Legal hold: 5150 Client on involuntary status for DTS. Report received from PER You with use of SBAR. Why are they here: 53 old female patient was BIB to the emergency department for evaluation of suicidal ideation. The patient reports that she has attempted to commit suicide multiple times for the last 3 days. She has taken "handfuls" of Benadryl, Toradol, Xanax, and Excedrin. The patient even notes giving pills to her dog so that she could "bring the dog with her." She also attempted to hang herself with her scarf while sleeping in her bed and was "hopeful " that she would "not wake up again." The patient also reported that she tried to cut her own throat this morning with a kitchen knife but stopped because of the pain. Patient denies any history of homicidal ideation. Assessment: What has happened this shift: The patient was found in her room at shift change. She is polite and cooperative. She reports that she's been trying for days to commit suicide by medications, "I kept taking them, but nothing happened, so I kept taking more. Nothing happened, so I tried to slice my neck, but it hurt too much. I gave up and here I am." She reports that if she had to leave right now, she would keep trying. The patient has been off Synthroid, so will start in AM. The patient was given Ativan for anxiety, but couldn't sleep, so FABIO Castañeda was called. An order for Trazodone 50mg was received. The patient is asleep at this time. S/I, H/I: Passive SI. "It would be fine if I didn't wake up in morning." A/VH: Denies Sleep: See sleep hours ADL's: Independent Group attendance: No groups at night Were meds taken: Yes Any med S/E: None stated or observed Mental Status Exam Appearance: Short overweight woman with blondish hair wearing green scrubs. Eye contact: Fair Behavior: Isolative, laying in bed. Speech: Normal Mood: Depressed Affect: Flat Thought process: Linear, goal oriented. Thought Content: Not known. Cognition: A/O x4 Insight: Fair Judgment: Poor Interventions PRN's used: Trazodone Therapeutic interventions: 1:1 assessment, active listening, therapeutic conversation, medication administration/education/monitoring, BP monitoring, Incentive spirometry teaching, encouragement to attend groups, Q 15 min safety checks. Restraints/seclusion/emergency medication: None Justification of Continued Inpatient Treatment: Interrupt current crisis, maintain safety of patient. Continued therapeutic support and medication management needed to provide stabilization, prevent decompensation, decreasing risk to patient and readmittance.
[2019-01-01] MEDS ORDERED: levoTHYROXINE 25mcg tablet PO SCH (07:00)
[2019-01-01 08:00] VITALS: BP 109/60
[2019-01-01 08:00] LABS: CHOL/HDL RATIO 7.6 (0.00-4.99); CHOLESTEROL 290 MG/DL (0-200); HDL CHOLESTEROL 38 MG/DL (35-60); LDL CHOLESTEROL 201 MG/DL (50-100); TRIGLYCERIDES 316 MG/DL (20-135)
--- NOTE | 2019-01-01 13:06 | NUR ---
1:1 Completed a [employer]an report and faxed over to [facility] fax number
[2019-01-01] MEDS: acetaminophen 325mg tablet PO PRN ×2 (13:19→20:49)
--- NOTE | 2019-01-01 17:03 | NUR ---
Nursing Progress Note: Legal hold: 5150 Client on involuntary status for DTS. Report received from PER You with use of SBAR. Why are they here: 53 old female patient was BIB to the emergency department for evaluation of suicidal ideation. The patient reports that she has attempted to commit suicide multiple times for the last 3 days. She has taken "handfuls" of Benadryl, Toradol, Xanax, and Excedrin. The patient even notes giving pills to her dog so that she could "bring the dog with her." She also attempted to hang herself with her scarf while sleeping in her bed and was "hopeful " that she would "not wake up again." The patient also reported that she tried to cut her own throat this morning with a kitchen knife but stopped because of the pain. Patient denies any history of homicidal ideation. Assessment: What has happened this shift: Pt up and visible in the am and initiated taking a shower. Pt endorses depression and anxiety, but denies S.I. Pt went to both groups and participated well. Pt very involved and appears invested in her treatment. Pt became tearful after afternoon group and does tend to put herself down and blame herself but was able to reword things in a more neutral way. Pt pleasant and cooperative. S/I, H/I: denies A/VH: Denies Sleep: none ADL's: Independent Group attendance: No groups at night Were meds taken: Yes Any med S/E: None stated or observed Mental Status Exam Appearance: Short overweight woman with blondish hair wearing green scrubs. Eye contact: Fair Behavior: Isolative, laying in bed. Speech: Normal Mood: Depressed Affect: Flat Thought process: Linear, goal oriented. Thought Content: Not known. Cognition: A/O x4 Insight: Fair Judgment: Poor Interventions PRN's used: Trazodone Therapeutic interventions: 1:1 assessment, active listening, therapeutic conversation, medication administration/education/monitoring, BP monitoring, Incentive spirometry teaching, encouragement to attend groups, Q 15 min safety checks. Restraints/seclusion/emergency medication: None Justification of Continued Inpatient Treatment: Interrupt current crisis, maintain safety of patient. Continued therapeutic support and medication management needed to provide stabilization, prevent decompensation, decreasing risk to patient and readmittance.
[2019-01-01 19:47] VITALS: BP 121/80
[2019-01-01] MEDS: LORazepam 1 MG tablet PO PRN (20:49)
[2019-01-01] MEDS ORDERED: dextrose 50%-water 50ml dispensing syringe IV PRN ×2 (22:20)
[2019-01-01] MEDS ORDERED: insulin Lispro (HumaLOG) vial - multi-dose SQ SCH (22:20)
[2019-01-01] MEDS ORDERED: dextrose ORAL solution 15 GM/59 ML bottle PO PRN ×2 (22:20)
[2019-01-01] MEDS ORDERED: glucagon, human recombinant 1mg kit SUBCUT PRN (22:20)
[2019-01-01] MEDS ORDERED: MESSAGE TO PHARMACY PO ONE (22:20)
[2019-01-01] MEDS: atorvastatin 20mg tablet PO SCH (23:25)
[2019-01-01] MEDS: aspirin 81mg tablet.DR PO SCH (23:26)
[2019-01-01] MEDS: traZODone 50mg tablet PO PRN (23:26)
[2019-01-01] MEDS: fenofibrate 145mg tablet PO SCH (23:26)
--- NOTE | 2019-01-02 00:29 | NUR ---
Nursing Progress Note: Legal hold: 5150 Client on involuntary status for DTS. Report received from PER Granger with use of SBAR. Why are they here: 53 old female patient was BIB to the emergency department for evaluation of suicidal ideation. The patient reports that she has attempted to commit suicide multiple times for the last 3 days. She has taken "handfuls" of Benadryl, Toradol, Xanax, and Excedrin. The patient even notes giving pills to her dog so that she could "bring the dog with her." She also attempted to hang herself with her scarf while sleeping in her bed and was "hopeful " that she would "not wake up again." The patient also reported that she tried to cut her own throat this morning with a kitchen knife but stopped because of the pain. Patient denies any history of homicidal ideation. Assessment: What has happened this shift: Pt was in rec room at change of shift, spent time talking on the phone w/her family. Pt reports difficulty falling asleep and c/o anxiety and a headache, prns given w/good effect. Pt states she is allergic to lantus causing her to have hives at the injection site, she states she is willing to take lantus if needed but would like to contact her pcp to see if she can get a Rx to be brought in for her of the medication she was taking prior. Hospitalist is starting patient on hyperglycemia protocol. S/I, H/I: denies A/VH: Denies Sleep: none ADL's: Independent Group attendance: No groups at night Were meds taken: Yes Any med S/E: None stated or observed Mental Status Exam Appearance: Short overweight woman with blondish hair wearing green scrubs. Eye contact: Fair Behavior: sitting alone in rec room on the phone with family, coloring and reading in her room Speech: Normal Mood: Depressed Affect: Flat Thought process: Linear, goal oriented. Thought Content: Not known. Cognition: A/O x4 Insight: Fair Judgment: Poor Interventions PRN's used: Trazodone Therapeutic interventions: 1:1 assessment, active listening, therapeutic conversation, medication administration/education/monitoring, BP monitoring, Incentive spirometry teaching, encouragement to attend groups, Q 15 min safety checks. Restraints/seclusion/emergency medication: None Justification of Continued Inpatient Treatment: Interrupt current crisis, maintain safety of patient. Continued therapeutic support and medication management needed to provide stabilization, prevent decompensation, decreasing risk to patient and readmittance.
[2019-01-02] MEDS: aspirin 81mg tablet.DR PO SCH (07:20)
[2019-01-02] MEDS: fenofibrate 145mg tablet PO SCH (07:20)
[2019-01-02] MEDS: atorvastatin 20mg tablet PO SCH (07:20)
[2019-01-02] MEDS: duloxetine 20mg capsule.DR PO SCH (07:20)
[2019-01-02] MEDS: levoTHYROXINE 100mcg tablet PO SCH (07:23)
[2019-01-02 07:43] LABS: BASOPHILS % (AUTO) 0.7 % (0-1); EOSINOPHILS # (AUTO) 0.1 X10'3 (0-0.9); EOSINOPHILS % (AUTO) 1.1 % (0-6); HEMATOCRIT 38.7 % (35.0-45.0); HEMOGLOBIN 12.8 g/dl (12.0-16.0); LYMPHOCYTES # (AUTO) 2.3 X10'3 (1.1-4.8); LYMPHOCYTES % (AUTO) 39.2 % (21-51); MEAN CORPUSCULAR HEMOGLOBIN 27.8 PG (27.0-31.0); MEAN CORPUSCULAR HGB CONC 33.1 g/dL (33.0-36.5); MEAN CORPUSCULAR VOLUME 83.9 FL (78-98); MEAN PLATELET VOLUME 6.9 FL (7.4-10.4); MONOCYTES # (AUTO) 0.4 X10'3 (0-0.9); MONOCYTES % (AUTO) 6.2 % (2-12); NEUTROPHILS # (AUTO) 3.1 X10'3 (1.8-7.7); NEUTROPHILS % (AUTO) 52.8 % (42-75); PLATELET COUNT 228 X10'3 (140-440); RED BLOOD COUNT 4.61 X10'6 (4.20-5.60); RED CELL DISTRIBUTION WIDTH 14.7 % (11.5-14.5); WHITE BLOOD COUNT 5.8 X10'3 (4.5-11.0)
[2019-01-02 07:53] LABS: ALANINE AMINOTRANSFERASE 22 U/L (12-78); ALBUMIN 3.7 G/DL (3.4-5.0); ALKALINE PHOSPHATASE 81 IU/L (46-116); ANION GAP 9 (8-16); ASPARTATE AMINO TRANSFERASE 16 U/L (10-37); BILIRUBIN,TOTAL 0.3 MG/DL (0.1-1.0); BLOOD UREA NITROGEN 12 MG/DL (7-18); BUN/CREATININE RATIO 15.6 (6.6-38.0); CALCIUM 9.6 MG/DL (8.5-10.1); CHLORIDE 102 MMOL/L (99-107); CREATININE 0.77 MG/DL (0.40-0.90); GLUCOSE 166 MG/DL (70-104); MAGNESIUM 1.6 MG/DL (1.5-2.4); PHOSPHORUS 4.2 MG/DL (2.3-4.5); POTASSIUM 4.5 MMOL/L (3.5-5.1); SODIUM 139 MMOL/L (135-145); TOTAL CARBON DIOXIDE 27.6 MMOL/L (24-32); TOTAL PROTEIN 7.3 G/DL (6.4-8.2); eGFR 79 ML/MIN
[2019-01-02 08:00] VITALS: BP 107/58
[2019-01-02] MEDS ORDERED: metFORMIN 500mg tablet PO SCH (08:10)
--- NOTE | 2019-01-02 11:36 | NUR ---
DM consult: Pt with A1c 9.0 admit with depression with SI. Per H&P pt stopped taking all medications 6 months ago including DM and thyroid medications. Pt previously admitted and seen by RD 12/14/17 with A1c 11.6 where pt was provided with written and verbal DM ed with referral to outpatient DM class and RD contact information. F/u education not appropriate at this time. Per H&P pt endorses a decreased appetite however is currently documented with 75-100% PO intake meeting nutrient needs. Patient's family contacted RD yesterday to inquire about bringing sugar free Poweraid to pt, informed family to consult with RN. Pt with hx gastric sleeve, currently not taking any medications. Discussed MVI with patient's family. LBM 01/01. No edema or wounds. Will continue to follow. Addendum: 01/02/19 at [address] Amended: Links added.
[2019-01-02] MEDS ORDERED: INSU100I8 SQ (15:16)
[2019-01-02] MEDS ORDERED: INSU100I25 SQ (15:16)
[2019-01-02] MEDS ORDERED: insulin Lispro (HumaLOG) vial - multi-dose SQ SCH (17:00)
[2019-01-02] MEDS: metFORMIN 500mg tablet PO SCH ×2 (17:30→17:57)
--- NOTE | 2019-01-02 17:49 | NUR ---
Nursing Progress Note: Legal hold: 5150 Client on involuntary status for DTS. Report received from PER Levy with use of SBAR. Why are they here: 53 old female patient was BIB to the emergency department for evaluation of suicidal ideation. The patient reports that she has attempted to commit suicide multiple times for the last 3 days. She has taken "handfuls" of Benadryl, Toradol, Xanax, and Excedrin. The patient even notes giving pills to her dog so that she could "bring the dog with her." She also attempted to hang herself with her scarf while sleeping in her bed and was "hopeful " that she would "not wake up again." The patient also reported that she tried to cut her own throat this morning with a kitchen knife but stopped because of the pain. Patient denies any history of homicidal ideation. Assessment: What has happened this shift: Pt up and visible in the am. Pt dressed for the day in appropriate clothing with good hygiene. Pt spent a good part of her free time today arranging her own insulin to be sent over. Pt less tearful today and had a more determined affect. Pt attending all groups and meals and though she continues to endorse depression, pt denied S.I. and relayed more hope today while processing with nurse. Pt pleasant and cooperative. S/I, H/I: denies A/VH: Denies Sleep: none ADL's: Independent Group attendance: yes Were meds taken: Yes Any med S/E: None stated or observed Mental Status Exam Appearance: Short overweight woman with blondish hair wearing green scrubs. Eye contact: Fair Behavior: Isolative, laying in bed. Speech: Normal Mood: Depressed Affect: Flat Thought process: Linear, goal oriented. Thought Content: Not known. Cognition: A/O x4 Insight: Fair Judgment: Poor Interventions PRN's used: Therapeutic interventions: 1:1 assessment, active listening, therapeutic conversation, medication administration/education/monitoring, BP monitoring, Incentive spirometry teaching, encouragement to attend groups, Q 15 min safety checks. Restraints/seclusion/emergency medication: None Justification of Continued Inpatient Treatment: Interrupt current crisis, maintain safety of patient. Continued therapeutic support and medication management needed to provide stabilization, prevent decompensation, decreasing risk to patient and readmittance.
[2019-01-02 19:42] VITALS: BP 110/62
[2019-01-02] MEDS: traZODone 50mg tablet PO PRN (20:36)
[2019-01-02] MEDS: LORazepam 1 MG tablet PO PRN (20:36)
[2019-01-02] MEDS ORDERED: Insulin Detemir pen SQ SCH (21:00)
[2019-01-02] MEDS ORDERED: insulin glargine (Lantus) pen - multi-dose SQ SCH (21:00)
--- NOTE | 2019-01-02 22:53 | NUR ---
Nursing Progress Note: Legal hold: 5150 Client on involuntary status for DTS. Report received from PER Power with use of SBAR. Why are they here: 53 old female patient was BIB to the emergency department for evaluation of suicidal ideation. The patient reports that she has attempted to commit suicide multiple times for the last 3 days. She has taken "handfuls" of Benadryl, Toradol, Xanax, and Excedrin. The patient even notes giving pills to her dog so that she could "bring the dog with her." She also attempted to hang herself with her scarf while sleeping in her bed and was "hopeful " that she would "not wake up again." The patient also reported that she tried to cut her own throat this morning with a kitchen knife but stopped because of the pain. Patient denies any history of homicidal ideation. Assessment: What has happened this shift: Ptstayed in her room most of the shift. She came out for her Glucose montitoring which was 170 at HS. . Pt less tearful today and had a more determined affect. Pt attending all groups and meals and though she continues to endorse depression, pt denied S.I. and relayed more hope today while processing with nurse. Pt pleasant and cooperative. S/I, H/I: denies A/VH: Denies Sleep: none ADL's: Independent Group attendance: yes Were meds taken: Yes Any med S/E: None stated or observed Mental Status Exam Appearance: Short overweight woman with blondish hair wearing green scrubs. Eye contact: Fair Behavior: Isolative, laying in bed. Speech: Normal Mood: Depressed Affect: Flat Thought process: Linear, goal oriented. Thought Content: Not known. Cognition: A/O x4 Insight: Fair Judgment: Poor Interventions PRN's used: Ativan ,Trazadone Therapeutic interventions: 1:1 assessment, active listening, therapeutic conversation, medication administration/education/monitoring, BP monitoring, Incentive spirometry teaching, encouragement to attend groups, Q 15 min safety checks. Restraints/seclusion/emergency medication: None Justification of Continued Inpatient Treatment: Interrupt current crisis, maintain safety of patient. Continued therapeutic support and medication management needed to provide stabilization, prevent decompensation, decreasing risk to patient and readmittance.
[2019-01-03] MEDS: aspirin 81mg tablet.DR PO SCH (07:21)
[2019-01-03] MEDS: duloxetine 20mg capsule.DR PO SCH (07:21)
[2019-01-03] MEDS: fenofibrate 145mg tablet PO SCH (07:21)
[2019-01-03] MEDS: metFORMIN 500mg tablet PO SCH ×2 (07:21→17:49)
[2019-01-03] MEDS: levoTHYROXINE 100mcg tablet PO SCH (07:21)
[2019-01-03] MEDS: atorvastatin 20mg tablet PO SCH (07:21)
[2019-01-03 07:34] LABS: BASOPHILS % (AUTO) 0.5 % (0-1); EOSINOPHILS # (AUTO) 0.1 X10'3 (0-0.9); HEMATOCRIT 37.1 % (35.0-45.0); HEMOGLOBIN 12.6 g/dl (12.0-16.0); LYMPHOCYTES # (AUTO) 2.1 X10'3 (1.1-4.8); LYMPHOCYTES % (AUTO) 32.9 % (21-51); MEAN CORPUSCULAR HGB CONC 33.9 g/dL (33.0-36.5); MEAN CORPUSCULAR VOLUME 82.5 FL (78-98); MEAN PLATELET VOLUME 7.1 FL (7.4-10.4); MONOCYTES # (AUTO) 0.4 X10'3 (0-0.9); MONOCYTES % (AUTO) 5.8 % (2-12); NEUTROPHILS # (AUTO) 3.9 X10'3 (1.8-7.7); NEUTROPHILS % (AUTO) 59.8 % (42-75); PLATELET COUNT 230 X10'3 (140-440); RED BLOOD COUNT 4.49 X10'6 (4.20-5.60); RED CELL DISTRIBUTION WIDTH 15.1 % (11.5-14.5); WHITE BLOOD COUNT 6.5 X10'3 (4.5-11.0)
[2019-01-03 07:51] LABS: ALANINE AMINOTRANSFERASE 21 U/L (12-78); ALBUMIN 3.6 G/DL (3.4-5.0); ALBUMIN/GLOBULIN RATIO 1.1 (1.1-1.5); ALKALINE PHOSPHATASE 80 IU/L (46-116); ANION GAP 7 (8-16); ASPARTATE AMINO TRANSFERASE 16 U/L (10-37); BILIRUBIN,TOTAL 0.4 MG/DL (0.1-1.0); BLOOD UREA NITROGEN 16 MG/DL (7-18); CALCIUM 9.1 MG/DL (8.5-10.1); CHLORIDE 103 MMOL/L (99-107); GLUCOSE 142 MG/DL (70-104); MAGNESIUM 1.5 MG/DL (1.5-2.4); PHOSPHORUS 3.8 MG/DL (2.3-4.5); POTASSIUM 4.2 MMOL/L (3.5-5.1); SODIUM 139 MMOL/L (135-145); TOTAL CARBON DIOXIDE 28.9 MMOL/L (24-32); eGFR 76 ML/MIN
[2019-01-03 08:34] VITALS: BP 96/56
--- NOTE | 2019-01-03 13:29 | NUR ---
Social work note: At request of Whitney Hollis PROMOTION MANAGER, met with patient to discuss housing. Pt was clear, lucid and linear. Pt confirms chart notes that she would like to leave her current living situation upon discharge. Pt reports she will be going directly to her mother's home in [place]. Pt volunteered that her current living situation causes her distress (living with her ex ). Pt reports that at discharge she will go immediately to her mother's house to "get my sea legs back". Pt reports she attempted suicide and has strong relationship with her parents, her brother (ROVING INSPECTOR in [place] who has been in town to visit her) and a sister who lives in [place] who came to [place]: Pt reports this sister visits twice daily. I ask Pt three times if housing arrangement with mother is safe, viable and immediately in place/available. Pt responded each time asked that, yes, she will be directly going to her mother's home.
--- NOTE | 2019-01-03 18:03 | NUR ---
Nursing Progress Note: Legal hold: 5150 Client on involuntary status for DTS. Report received from Mildred ALBARADO with use of SBAR. Why are they here: 53 old female patient was BIB to the emergency department for evaluation of suicidal ideation. The patient reports that she has attempted to commit suicide multiple times for the last 3 days. She has taken "handfuls" of Benadryl, Toradol, Xanax, and Excedrin. The patient even notes giving pills to her dog so that she could "bring the dog with her." She also attempted to hang herself with her scarf while sleeping in her bed and was "hopeful " that she would "not wake up again." The patient also reported that she tried to cut her own throat this morning with a kitchen knife but stopped because of the pain. Patient denies any history of homicidal ideation. Assessment: What has happened this shift: Patient is observed sleeping at change of shift. She is woken and takes her medications without issue. Her BS in the morning is 138. Patient states that she is feeling better. She eats her meals in the group room with others and attends all groups. She is friendly and social with others. Patient states that she is looking forward to leaving the unit and moving in with her mother. Patient denies wanting to harm herself but does report still feeling down. At the end of shift she states that she may want her cymbalta increased. Patient requests to have to have [employer] brought in, this is approved by prescriber Santa. S/I, H/I: denies A/VH: Denies Sleep: 8.5hrs NOC ADL's: Independent Group attendance: yes Were meds taken: Yes Any med S/E: None stated or observed Mental Status Exam Appearance: clean, groomed well and dressed in own clothing Eye contact: direct Behavior: social, conversational Speech: soft tone, normal rate and rhythm Mood: reports improved mood Affect: occasional brightening Thought process: Linear, goal oriented. Thought Content: leaving unit Cognition: A/O x4 Insight: Fair Judgment: Poor Interventions PRN's used: none Therapeutic interventions: 1:1 assessment, active listening, therapeutic conversation, medication administration/education/monitoring, BP monitoring, Incentive spirometry teaching, encouragement to attend groups, Q 15 min safety checks. Restraints/seclusion/emergency medication: None Justification of Continued Inpatient Treatment: Interrupt current crisis, maintain safety of patient. Continued therapeutic support and medication management needed to provide stabilization, prevent decompensation, decreasing risk to patient and readmittance.
[2019-01-03] MEDS: traZODone 50mg tablet PO PRN (20:05)
[2019-01-03] MEDS: LORazepam 1 MG tablet PO PRN (20:05)
[2019-01-03 20:51] VITALS: BP 120/70
--- NOTE | 2019-01-04 02:00 | NUR ---
Nursing Progress Note: Legal hold: Voluntary Client on involuntary status for DTS. Report received from Tono ALBARADO with use of SBAR. Why are they here: 53 old female patient was BIB to the emergency department for evaluation of suicidal ideation. The patient reports that she has attempted to commit suicide multiple times for the last 3 days. She has taken "handfuls" of Benadryl, Toradol, Xanax, and Excedrin. The patient even notes giving pills to her dog so that she could "bring the dog with her." She also attempted to hang herself with her scarf while sleeping in her bed and was "hopeful " that she would "not wake up again." The patient also reported that she tried to cut her own throat this morning with a kitchen knife but stopped because of the pain. Patient denies any history of homicidal ideation. Assessment: What has happened this shift: The patient has isolated in her room but was friendly and cooperative with the evening assessment. She stated that she was feeling sad. She stated that in the morning she was also feeling sad but felt better after taking Cymbalta but then in the after noon was feeling sad and tired. She stated that this is the first day that she has not had suicidal thoughts. She stated that she is going to stay with her parents after discharge and that they were supportive of her. She stated that she had talked to her daughter earlier in the day and the daughter told her that she was being selfish and that this hospitalization was planned at the wrong time. She stated that she feels her children don't care about her. She did state that her depression is better than on admit. S/I, H/I: denies A/VH: Denies Sleep: ADL's: Independent Group attendance: Were meds taken: Yes Any med S/E: None stated or observed Mental Status Exam Appearance: clean, groomed well and dressed in own clothing Eye contact: direct Behavior: social, conversational Speech: soft tone, normal rate and rhythm Mood: reports improved mood Affect: occasional brightening Thought process: Linear, goal oriented. Thought Content: feels her children don't really care Cognition: A/O x4 Insight: Fair Judgment: Fair Interventions PRN's used: Trazodone and Ativan at HS Therapeutic interventions: 1:1 assessment, active listening, therapeutic conversation, medication administration/education/monitoring, BP monitoring, Incentive spirometry teaching, encouragement to attend groups, Q 15 min safety checks. Restraints/seclusion/emergency medication: None Justification of Continued Inpatient Treatment: Interrupt current crisis, maintain safety of patient. Continued therapeutic support and medication management needed to provide stabilization, prevent decompensation, decreasing risk to patient and readmittance.
[2019-01-04 08:01] VITALS: BP 126/64
[2019-01-04] MEDS: aspirin 81mg tablet.DR PO SCH (08:05)
[2019-01-04] MEDS: atorvastatin 20mg tablet PO SCH (08:05)
[2019-01-04] MEDS: metFORMIN 500mg tablet PO SCH ×2 (08:05→17:21)
[2019-01-04] MEDS: fenofibrate 145mg tablet PO SCH (08:05)
[2019-01-04] MEDS: duloxetine 20mg capsule.DR PO SCH (08:06)
[2019-01-04] MEDS: levoTHYROXINE 100mcg tablet PO SCH (08:06)
[2019-01-04 08:09] LABS: BASOPHILS % (AUTO) 0.3 % (0-1); EOSINOPHILS % (AUTO) 0.8 % (0-6); HEMATOCRIT 37.4 % (35.0-45.0); HEMOGLOBIN 12.4 g/dl (12.0-16.0); LYMPHOCYTES # (AUTO) 1.6 X10'3 (1.1-4.8); LYMPHOCYTES % (AUTO) 26.5 % (21-51); MEAN CORPUSCULAR HEMOGLOBIN 27.8 PG (27.0-31.0); MEAN CORPUSCULAR HGB CONC 33.1 g/dL (33.0-36.5); MEAN CORPUSCULAR VOLUME 84.2 FL (78-98); MEAN PLATELET VOLUME 7.2 FL (7.4-10.4); MONOCYTES # (AUTO) 0.4 X10'3 (0-0.9); MONOCYTES % (AUTO) 7.1 % (2-12); NEUTROPHILS # (AUTO) 3.9 X10'3 (1.8-7.7); NEUTROPHILS % (AUTO) 65.3 % (42-75); PLATELET COUNT 204 X10'3 (140-440); RED BLOOD COUNT 4.44 X10'6 (4.20-5.60); RED CELL DISTRIBUTION WIDTH 15.1 % (11.5-14.5)
[2019-01-04 08:25] LABS: ALBUMIN 3.6 G/DL (3.4-5.0); ANION GAP 7 (8-16); BILIRUBIN,TOTAL 0.4 MG/DL (0.1-1.0); BLOOD UREA NITROGEN 15 MG/DL (7-18); BUN/CREATININE RATIO 19.7 (6.6-38.0); CALCIUM 8.8 MG/DL (8.5-10.1); CHLORIDE 103 MMOL/L (99-107); CREATININE 0.76 MG/DL (0.40-0.90); GLUCOSE 155 MG/DL (70-104); MAGNESIUM 1.5 MG/DL (1.5-2.4); PHOSPHORUS 3.3 MG/DL (2.3-4.5); POTASSIUM 4.1 MMOL/L (3.5-5.1); SODIUM 137 MMOL/L (135-145); TOTAL CARBON DIOXIDE 26.7 MMOL/L (24-32); eGFR 80 ML/MIN
[2019-01-04 08:26] LABS: ALANINE AMINOTRANSFERASE 20 U/L (12-78); ALBUMIN/GLOBULIN RATIO 1.1 (1.1-1.5); ALKALINE PHOSPHATASE 83 IU/L (46-116); ASPARTATE AMINO TRANSFERASE 16 U/L (10-37)
[2019-01-04] MEDS: duloxetine 30mg CAPSULE.DR PO SCH (12:53)
--- NOTE | 2019-01-04 15:49 | NUR ---
NURSING PROGRESS NOTE Legal hold: Voluntary Client on involuntary status for DTS. Report received from PER Levy with use of SBAR. Why are they here: 53 old female patient was BIB to the emergency department for evaluation of suicidal ideation. The patient reports that she has attempted to commit suicide multiple times for the last 3 days. She has taken "handfuls" of Benadryl, Toradol, Xanax, and Excedrin. The patient even notes giving pills to her dog so that she could "bring the dog with her." She also attempted to hang herself with her scarf while sleeping in her bed and was "hopeful " that she would "not wake up again." The patient also reported that she tried to cut her own throat this morning with a kitchen knife but stopped because of the pain. Patient denies any history of homicidal ideation. Assessment: What has happened this shift: The patient was asleep at change of shift. She was up to meals and participated in all groups today. She states she feels hopeful and is not having suicidal thoughts at this time. She reports her stressors as: living with her ex- and him wanting a sexual relationship which she does not want, having her older daughter and her 3 grandchildren living with them, a 17 year old daughter who "thinks she knows everything" who wants to move out but doesn't have anywhere to go but still expects her mother to fix big meals for her, another child in [place]. She feels put upon and not appreciated. Education provided regarding boundaries, thoughts and depressed mood, and medications. S/I, H/I: denies A/VH: Denies Sleep: None ADL's: Independent Group attendance: yes x2 Were meds taken: Yes Any med S/E: None stated or observed Mental Status Exam Appearance: clean, groomed well and dressed in own clothing Eye contact: direct Behavior: social, conversational Speech: soft tone, normal rate and rhythm Mood: reports improved mood Affect: occasional brightening Thought process: Linear, goal oriented. Thought Content: feels her children don't really care, wants to set limits and boundaries Cognition: A/O x4 Insight: Fair Judgment: Fair Interventions PRN's used: None Therapeutic interventions: 1:1 assessment, active listening, therapeutic conversation, medication administration/education/monitoring, BP monitoring, Incentive spirometry teaching, encouragement to attend groups, Q 15 min safety checks. Restraints/seclusion/emergency medication: None Justification of Continued Inpatient Treatment: Interrupt current crisis, maintain safety of patient. Continued therapeutic support and medication management needed to provide stabilization, prevent decompensation, decreasing risk to patient and readmittance.
[2019-01-04 20:00] VITALS: BP 130/79
[2019-01-04] MEDS: traZODone 50mg tablet PO PRN ×2 (20:16→21:03)
--- NOTE | 2019-01-05 04:37 | NUR ---
NURSING PROGRESS NOTE Legal hold: N/A Client on voluntary status for DTS. Report received from PER Mtz with use of SBAR. Why are they here: 53 old female patient was BIB to the emergency department for evaluation of suicidal ideation. The patient reports that she has attempted to commit suicide multiple times for the last 3 days. She has taken "handfuls" of Benadryl, Toradol, Xanax, and Excedrin. The patient even notes giving pills to her dog so that she could "bring the dog with her." She also attempted to hang herself with her scarf while sleeping in her bed and was "hopeful " that she would "not wake up again." The patient also reported that she tried to cut her own throat this morning with a kitchen knife but stopped because of the pain. Patient denies any history of homicidal ideation. Assessment: What has happened this shift: Pt was sitting in her room looking out the window at shift change. This video games storywriter introduced self and established rapport. Pt reports today is the first day she hasn't had thoughts of wanting to hurt herself, "today is a good day." Pt states "I am still not ready to go home yet." Pt had a visit with mother and sister and states it went well. Pt is positive and goal oriented. She will d/c to parents house then work on getting a place of her own. Pt understands that she needs to set boundaries with her family, but is Pt is ACHS, but is not on protocol. Pt's HS blood glucose was 158. Pt is taking 1,000mg of Metformin BIDBD. Pt's A1C was 9.0. Pt c/o of a non-productive intermittent cough, no sputum reported. Pt drinks sugar-free Powerade, which is kept in the fridge; this was doctor approved. 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 Pt was medication compliant and was administered PRN Trazadone 50mg MR x1, with effect. S/I, H/I: Pt denies. A/VH: Pt denies Sleep: See sleep assessment notation. Administered Trazadone 50mg MRx1 ADL's: Independent Group attendance: shift engineer, no group Were meds taken: Medication compliant Any med S/E: None reported or observed Mental Status Exam Appearance: Clean, well groomed, dressed in own clothing Eye contact: Direct Behavior: Pleasant, friendly, goal oriented Speech: Soft tone, normal rate and rhythm Mood: "It was a good day" Affect: Occasional brightening Thought process: Linear, goal oriented. Thought Content: Wants to set limits and boundaries Cognition: A/O x4 Insight: Fair Judgment: Fair Interventions PRN's used: Trazadone 100 mg Therapeutic interventions: 1:1 assessment, active listening, therapeutic conversation, medication administration/education/monitoring, BP monitoring, Incentive spirometry teaching, encouragement to attend groups, Q 15 min safety checks. Restraints/seclusion/emergency medication: None Justification of Continued Inpatient Treatment: Interrupt current crisis, maintain safety of patient. Continued therapeutic support and medication management needed to provide stabilization, prevent decompensation, decreasing risk to patient and readmittance.
[2019-01-05] MEDS: levoTHYROXINE 100mcg tablet PO SCH (07:27)
[2019-01-05] MEDS: duloxetine 20mg capsule.DR PO SCH (07:27)
[2019-01-05] MEDS: metFORMIN 500mg tablet PO SCH ×2 (07:27→17:17)
[2019-01-05] MEDS: atorvastatin 20mg tablet PO SCH (07:28)
[2019-01-05] MEDS: aspirin 81mg tablet.DR PO SCH (07:50)
[2019-01-05] MEDS: fenofibrate 145mg tablet PO SCH (07:50)
[2019-01-05] MEDS: acetaminophen 325mg tablet PO PRN (07:51)
[2019-01-05 08:11] VITALS: BP 108/60
[2019-01-05 08:15] LABS: BASOPHILS % (AUTO) 0.4 % (0-1); EOSINOPHILS % (AUTO) 0.9 % (0-6); HEMATOCRIT 35.8 % (35.0-45.0); HEMOGLOBIN 12.2 g/dl (12.0-16.0); LYMPHOCYTES # (AUTO) 1.9 X10'3 (1.1-4.8); MEAN CORPUSCULAR HEMOGLOBIN 28.2 PG (27.0-31.0); MEAN CORPUSCULAR HGB CONC 34.1 g/dL (33.0-36.5); MEAN CORPUSCULAR VOLUME 82.7 FL (78-98); MEAN PLATELET VOLUME 7.1 FL (7.4-10.4); MONOCYTES # (AUTO) 0.3 X10'3 (0-0.9); MONOCYTES % (AUTO) 6.4 % (2-12); NEUTROPHILS # (AUTO) 2.8 X10'3 (1.8-7.7); NEUTROPHILS % (AUTO) 55.3 % (42-75); PLATELET COUNT 209 X10'3 (140-440); RED BLOOD COUNT 4.33 X10'6 (4.20-5.60); RED CELL DISTRIBUTION WIDTH 15.3 % (11.5-14.5); WHITE BLOOD COUNT 5.1 X10'3 (4.5-11.0)
[2019-01-05 08:31] LABS: ALANINE AMINOTRANSFERASE 20 U/L (12-78); ALBUMIN 3.6 G/DL (3.4-5.0); ALBUMIN/GLOBULIN RATIO 1.1 (1.1-1.5); ALKALINE PHOSPHATASE 78 IU/L (46-116); ANION GAP 5 (8-16); ASPARTATE AMINO TRANSFERASE 17 U/L (10-37); BILIRUBIN,TOTAL 0.3 MG/DL (0.1-1.0); BLOOD UREA NITROGEN 12 MG/DL (7-18); BUN/CREATININE RATIO 17.1 (6.6-38.0); CHLORIDE 103 MMOL/L (99-107); GLUCOSE 155 MG/DL (70-104); MAGNESIUM 1.5 MG/DL (1.5-2.4); PHOSPHORUS 3.5 MG/DL (2.3-4.5); POTASSIUM 4.1 MMOL/L (3.5-5.1); SODIUM 137 MMOL/L (135-145); TOTAL CARBON DIOXIDE 28.6 MMOL/L (24-32); TOTAL PROTEIN 6.8 G/DL (6.4-8.2); eGFR 88 ML/MIN
[2019-01-05] MEDS: LORazepam 1 MG tablet PO PRN ×2 (11:03→20:36)
[2019-01-05] MEDS: duloxetine 30mg CAPSULE.DR PO SCH (12:19)
--- NOTE | 2019-01-05 15:32 | NUR ---
NURSING PROGRESS NOTE: Jaimie Legal hold: N/A Client on voluntary status for DTS. Report received from RN with use of SBAR. Why are they here: 53 old female patient was BIB to the emergency department for evaluation of suicidal ideation. The patient reports that she has attempted to commit suicide multiple times for the last 3 days. She has taken "handfuls" of Benadryl, Toradol, Xanax, and Excedrin. The patient even notes giving pills to her dog so that she could "bring the dog with her." She also attempted to hang herself with her scarf while sleeping in her bed and was "hopeful " that she would "not wake up again." The patient also reported that she tried to cut her own throat this morning with a kitchen knife but stopped because of the pain. Patient denies any history of homicidal ideation. Assessment: Client was in bed with eyes closed to start this shift. Woke easily for medications and FS. FS this am was 156. Client showed no signs of hyperglycemia. Compliant with morning medications and assessment. PRN of Tylenol given with med pass for c/o headache. Client received good effect from medication. Client was more isolative to her room after breakfast but states, " I am doing better but I am not ready to go yet". Medicated client with Ativan 1 mg per orders for agitation at 1100 hours. Client became tearful and upset during a visit and requested to skip Atarax and give Ativan which was done. Client has used Atarax prior and she states, "it does not work for me". Client returned to room after PRN of Ativan and she received good effect. BS at noon was 185. Client c/o left arm pain when, "I get too worked up". She was noted to be rubbing her left arm while conversing with grant writer which prompted questions regarding her discomfort. Client refused lunch meal stating, " I will rest here for lunch". She continues to rest as of this writing. (1525 hours). No behavioral issues this shift and client does verbally contract to be safe while on the unit and will seek staff if she is unable to control urges to cause harm to self. S/I, H/I: Pt denies. A/VH: Pt denies Sleep: ADL's: Independent Group attendance: not today Were meds taken: Medication compliant Any med S/E: None reported or observed Mental Status Exam Appearance: Clean, well groomed, dressed in own clothing Eye contact: Direct Behavior: Pleasant, friendly, goal oriented Speech: Soft tone, normal rate and rhythm Mood: "I am tired and am going to bed" Affect: Occasional brightening Thought process: Linear, goal oriented. Thought Content: Wants to set limits and boundaries Cognition: A/O x4 Insight: Fair Judgment: Fair Interventions PRN's used: Tylenol Therapeutic interventions: 1:1 assessment, active listening, therapeutic conversation, medication administration/education/monitoring, BP monitoring, Incentive spirometry teaching, encouragement to attend groups, Q 15 min safety checks. Restraints/seclusion/emergency medication: None Justification of Continued Inpatient Treatment: Interrupt current crisis, maintain safety of patient. Continued therapeutic support and medication management needed to provide stabilization, prevent decompensation, decreasing risk to patient and readmittance.
[2019-01-05 19:00] VITALS: BP 120/71
[2019-01-05] MEDS: traZODone 50mg tablet PO PRN (20:22)
--- NOTE | 2019-01-06 00:26 | NUR ---
NURSING PROGRESS NOTE Legal hold: N/A Client on voluntary status for DTS. Report received from PER Mtz with use of SBAR. Why are they here: 53 old female patient was BIB to the emergency department for evaluation of suicidal ideation. The patient reports that she has attempted to commit suicide multiple times for the last 3 days. She has taken "handfuls" of Benadryl, Toradol, Xanax, and Excedrin. The patient even notes giving pills to her dog so that she could "bring the dog with her." She also attempted to hang herself with her scarf while sleeping in her bed and was "hopeful " that she would "not wake up again." The patient also reported that she tried to cut her own throat this morning with a kitchen knife but stopped because of the pain. Patient denies any history of homicidal ideation. Assessment: What has happened this shift: Pt again was sitting in her dark room looking out the window at shift change. Pt waiting for visit with mother and sister. Pt states "I did not have a good day." "My doctor talked about sending me home in the next couple of days." "It made me afraid and sick to my stomach, I was unable to eat my lunch." Pt states she is feeling sad because this will be her last visit with her sister; sister going back to home in [facility]. Pt states she is not just afraid of going home, but feels she is "failing myself for being scared." Pt reports seeing "ghost shapes floating around in her room." "When I woke up from my nap, I wasn't sure if they were real." "I see ghosts when I am at home." Pt's scheduled Trazadone was increased to 100mg HS. Pt also requested Ativan reports anxiety 10/28. HS blood sugar was 189. Pt sleeping comfortably as of this writing. Will continue to monitor. S/I, H/I: Pt denies both. A/VH: "I saw ghost shapes floating around in my room." Denies VH Sleep: See sleep assessment notation. Administered Trazadone 100mg ADL's: Independent Group attendance: shift commander, no group Were meds taken: Medication compliant Any med S/E: None reported or observed Mental Status Exam Appearance: Clean, well groomed, dressed in own clothing Eye contact: Direct Behavior: Pleasant, guarded Speech: Soft tone, normal rate and rhythm Mood: Depressed Affect: Congruent to mood Thought process: Linear Thought Content: Afraid of discharge. Sister going back home to [place]. Cognition: A/O x4 Insight: Fair Judgment: Fair Interventions PRN's used: Trazadone 100 mg, Ativan Therapeutic interventions: 1:1 assessment, active listening, therapeutic conversation, medication administration/education/monitoring, BP monitoring, Incentive spirometry teaching, encouragement to attend groups, Q 15 min safety checks. Restraints/seclusion/emergency medication: None Justification of Continued Inpatient Treatment: Interrupt current crisis, maintain safety of patient. Continued therapeutic support and medication management needed to provide stabilization, prevent decompensation, decreasing risk to patient and readmittance.
[2019-01-06 07:14] LABS: BASOPHILS % (AUTO) 0.5 % (0-1); EOSINOPHILS # (AUTO) 0.1 X10'3 (0-0.9); EOSINOPHILS % (AUTO) 1.1 % (0-6); HEMATOCRIT 36.7 % (35.0-45.0); HEMOGLOBIN 12.1 g/dl (12.0-16.0); LYMPHOCYTES # (AUTO) 2.1 X10'3 (1.1-4.8); LYMPHOCYTES % (AUTO) 44.1 % (21-51); MEAN CORPUSCULAR HEMOGLOBIN 27.8 PG (27.0-31.0); MEAN CORPUSCULAR HGB CONC 33.1 g/dL (33.0-36.5); MEAN PLATELET VOLUME 6.9 FL (7.4-10.4); MONOCYTES # (AUTO) 0.3 X10'3 (0-0.9); MONOCYTES % (AUTO) 6.4 % (2-12); NEUTROPHILS # (AUTO) 2.3 X10'3 (1.8-7.7); NEUTROPHILS % (AUTO) 47.9 % (42-75); PLATELET COUNT 223 X10'3 (140-440); RED BLOOD COUNT 4.37 X10'6 (4.20-5.60); RED CELL DISTRIBUTION WIDTH 15.1 % (11.5-14.5); WHITE BLOOD COUNT 4.8 X10'3 (4.5-11.0)
[2019-01-06] MEDS: aspirin 81mg tablet.DR PO SCH (07:53)
[2019-01-06] MEDS: duloxetine 20mg capsule.DR PO SCH (07:53)
[2019-01-06] MEDS: atorvastatin 20mg tablet PO SCH (07:53)
[2019-01-06] MEDS: metFORMIN 500mg tablet PO SCH ×2 (07:53→17:34)
[2019-01-06] MEDS: levoTHYROXINE 100mcg tablet PO SCH (07:54)
[2019-01-06] MEDS: fenofibrate 145mg tablet PO SCH (07:54)
[2019-01-06 07:55] VITALS: BP 106/59
[2019-01-06 07:59] LABS: ALANINE AMINOTRANSFERASE 22 U/L (12-78); ALBUMIN 3.6 G/DL (3.4-5.0); ALBUMIN/GLOBULIN RATIO 1.1 (1.1-1.5); ALKALINE PHOSPHATASE 78 IU/L (46-116); ANION GAP 4 (8-16); ASPARTATE AMINO TRANSFERASE 18 U/L (10-37); BILIRUBIN,TOTAL 0.4 MG/DL (0.1-1.0); BLOOD UREA NITROGEN 11 MG/DL (7-18); BUN/CREATININE RATIO 13.8 (6.6-38.0); CALCIUM 9.1 MG/DL (8.5-10.1); CHLORIDE 104 MMOL/L (99-107); GLUCOSE 151 MG/DL (70-104); MAGNESIUM 1.5 MG/DL (1.5-2.4); PHOSPHORUS 3.5 MG/DL (2.3-4.5); POTASSIUM 4.2 MMOL/L (3.5-5.1); SODIUM 139 MMOL/L (135-145); TOTAL CARBON DIOXIDE 30.8 MMOL/L (24-32); eGFR 76 ML/MIN
[2019-01-06] MEDS: duloxetine 30mg CAPSULE.DR PO SCH (12:59)
--- NOTE | 2019-01-06 14:50 | NUR ---
Complained to PCT that she was feeling like her blood sugar was low. FSBG checked revealed a level of 132, however patient had just eaten a cup of sherbert to feel better. Continues to feel shaky but sweating has stopped.
--- NOTE | 2019-01-06 16:10 | NUR ---
NURSING PROGRESS NOTE Legal hold: Voluntary Client on involuntary status for DTS. Report received from PER Navarro with use of SBAR. Why are they here: 53 old female patient was BIB to the emergency department for evaluation of suicidal ideation. The patient reports that she has attempted to commit suicide multiple times for the last 3 days. She has taken "handfuls" of Benadryl, Toradol, Xanax, and Excedrin. The patient even notes giving pills to her dog so that she could "bring the dog with her." She also attempted to hang herself with her scarf while sleeping in her bed and was "hopeful " that she would "not wake up again." The patient also reported that she tried to cut her own throat this morning with a kitchen knife but stopped because of the pain. Patient denies any history of homicidal ideation. Assessment: What has happened this shift: The patient was asleep at change of shift. She was up to meals and participated in group today and had a good visit with her mother and father.. She states she feels hopeful and is not having suicidal thoughts. Her plan upon discharge is to live with her parents for as long as it takes to get stabilized in her life. Parents stated agreement with this plan during visitation to this nurse. Patient recognizes her stressors and is working on coping skills. She is "afraid of the unknown" but realizes she has a support system. S/I, H/I: denies A/VH: Denies Sleep: None ADL's: Independent Group attendance: yes Were meds taken: Yes Any med S/E: None stated or observed Mental Status Exam Appearance: clean, groomed well and dressed in own clothing Eye contact: direct Behavior: social, conversational Speech: soft tone, normal rate and rhythm Mood: Bright Affect: Calm and cooperative Thought process: Linear, goal oriented. Thought Content: looking forward to discharge, wants to set limits and boundaries Cognition: A/O x4 Insight: Good Judgment: Good Interventions PRN's used: None Therapeutic interventions: 1:1 assessment, active listening, therapeutic conversation, medication administration/education/monitoring, BP monitoring, Incentive spirometry teaching, encouragement to attend groups, Q 15 min safety checks. Restraints/seclusion/emergency medication: None Justification of Continued Inpatient Treatment: Interrupt current crisis, maintain safety of patient. Continued therapeutic support and medication management needed to provide stabilization, prevent decompensation, decreasing risk to patient and readmittance.
[2019-01-06 19:00] VITALS: BP 132/68
[2019-01-06] MEDS: traZODone 50mg tablet PO PRN (20:25)
[2019-01-06] MEDS: LORazepam 1 MG tablet PO PRN (20:25)
--- NOTE | 2019-01-06 22:22 | NUR ---
NURSING PROGRESS NOTE Legal hold: N/A Client on voluntary status for DTS. Report received from PER Mtz with use of SBAR. Why are they here: 53 old female patient was BIB to the emergency department for evaluation of suicidal ideation. The patient reports that she has attempted to commit suicide multiple times for the last 3 days. She has taken "handfuls" of Benadryl, Toradol, Xanax, and Excedrin. The patient even notes giving pills to her dog so that she could "bring the dog with her." She also attempted to hang herself with her scarf while sleeping in her bed and was "hopeful " that she would "not wake up again." The patient also reported that she tried to cut her own throat this morning with a kitchen knife but stopped because of the pain. Patient denies any history of homicidal ideation. Assessment: What has happened this shift: Pt sitting group room coloring at shift change. Pt is bright and visiting with another peer. Pt states she be discharged tomorrow and reiterates she is not fearful "I have a good support system" and I am understanding boundary settings." Pt feels she has learned a lot during her admission and will be able to "pull from her toolbox." Pt will be d/c to her parents house. Pt's HS FSBG was 144, no s/s of hypoglycemia. Pt is very optimistic and engaging. Pt states she has had no thoughts of harming herself for a few days now. S/I, H/I: Pt denies both. A/VH: Pt denies. Sleep: See sleep assessment notation. Administered Trazadone 100mg ADL's: Independent Group attendance: auto service mechanic, no group Were meds taken: Medication compliant Any med S/E: None reported or observed Mental Status Exam Appearance: Clean, well groomed, dressed in own clothing Eye contact: Direct Behavior: Pleasant, optimistic, engaging Speech: Soft tone, normal rate and rhythm Mood: Bright, positive Affect: Bright Thought process: Linear, goal oriented Thought Content: Focused on discharge and boundary setting Cognition: A/O x4 Insight: Fair Judgment: Fair Interventions PRN's used: Trazadone 100 mg, Ativan Therapeutic interventions: 1:1 assessment, active listening, therapeutic conversation, medication administration/education/monitoring, BP monitoring, symptom identification and management, encouragement to attend groups, Q 15 min safety checks. Restraints/seclusion/emergency medication: None Justification of Continued Inpatient Treatment: Interrupt current crisis, maintain safety of patient. Continued therapeutic support and medication management needed to provide stabilization, prevent decompensation, decreasing risk to patient and readmittance.
[2019-01-07] MEDS: levoTHYROXINE 100mcg tablet PO SCH (07:24)
[2019-01-07] MEDS: metFORMIN 500mg tablet PO SCH (07:51)
[2019-01-07 08:00] VITALS: BP 108/65
[2019-01-07] MEDS: duloxetine 20mg capsule.DR PO SCH (08:26)
[2019-01-07] MEDS: fenofibrate 145mg tablet PO SCH (08:27)
[2019-01-07] MEDS: aspirin 81mg tablet.DR PO SCH (08:27)
[2019-01-07] MEDS: atorvastatin 20mg tablet PO SCH (08:27)
--- NOTE | 2019-01-07 10:35 | NUR ---
reassessment: Pt PO decreased past 2 days 25-50% avg meals down from 100% prior. Receiving tricor and lipitor w/ TG 316 and cholesterol 290 on admit. LB 01/06. Will continue to monitor; if PO continues to decline may need ONS. Rec: 1. continue carb controlled diet 2. monitor for ONS if PO continues to decline 3. routine bowel care Addendum: 01/07/19 at [address] Amended: Links added.
[2019-01-07] MEDS ORDERED: METF-950 PO (10:46)
[2019-01-07] MEDS ORDERED: LEVO100T9 PO (10:46)
[2019-01-07] MEDS ORDERED: DULO20CA18 PO (10:46)
[2019-01-07] MEDS ORDERED: ATOR20TA66 PO (10:46)
[2019-01-07] MEDS ORDERED: HYDR-3686 PO (10:46)
[2019-01-07] MEDS ORDERED: TRAZ-251 PO (10:46)
[2019-01-07] MEDS ORDERED: ATI1T PO (10:46)
[2019-01-07] MEDS ORDERED: FENO145T25 PO (10:46)
[2019-01-07] MEDS ORDERED: DULO30CA52 PO (11:30)
--- NOTE | 2019-01-07 11:45 | NUR ---
DISCHARGE NOTE Patient verbalizes readiness for discharge, denies S/I. Reviewed discharge instructions, medications, and F/U care with patient, and she verbalizes understanding. Pt's belongings inventoried and sent with her, including home medications. No nicotine replacements needed. Pt ambulated off the unit, escorted by staff, at 1145. Left with her mother, who is driving her home.
== END 2019-01-07 11:45 | disposition home or self-care (01) | DRG 751 ==
LOC: ADULT MH 09:35
PROVIDERS: ADMIT Psychiatry & Neurology Psychiatry; ATTEND Psychiatry & Neurology Psychiatry
DX: F33.2 Major depressive disorder, recurrent severe without psychotic features (principal); R45.851 Suicidal ideations; K76.0 Fatty (change of) liver, not elsewhere classified; E11.9 Type 2 diabetes mellitus without complications; F41.1 Generalized anxiety disorder; I10 Essential (primary) hypertension; I25.10 Atherosclerotic heart disease of native coronary artery without angina pectoris; E78.5 Hyperlipidemia, unspecified; E78.1 Pure hyperglyceridemia; G89.29 Other chronic pain; E78.00 Pure hypercholesterolemia, unspecified; E06.3 Autoimmune thyroiditis; Z91.19 Patient's noncompliance with other medical treatment and regimen; Z79.84 Long term (current) use of oral hypoglycemic drugs; Z79.890 Hormone replacement therapy; Z79.899 Other long term (current) drug therapy; Z80.6 Family history of leukemia; Z82.49 Family history of ischemic heart disease and other diseases of the circulatory system; Z83.3 Family history of diabetes mellitus; Z90.710 Acquired absence of both cervix and uterus; Z95.5 Presence of coronary angioplasty implant and graft; Z98.84 Bariatric surgery status; Z90.49 Acquired absence of other specified parts of digestive tract
CPT/HCPCS: 36415; 80053; 80061; 82948; 83036; 83735; 84100; 85025; 87081; J1815; Z7610

== ENCOUNTER 2019-01-09 00:15 | Outpatient (CLI) | payer MEDICAID ==
[~2019-01-09 00:15] MED LIST changes: -ALPR1TAB2 PO; +ATI1T PO; +ATOR20TA66 PO; +DULO20CA18 PO; +DULO30CA52 PO; +FENO145T25 PO; +HYDR-3686 PO; +LEVO100T9 PO; +METF-950 PO; +TRAZ-251 PO
== END 2019-01-09 23:59 | disposition home or self-care (01) ==
LOC: DIABETIC 00:15
PROVIDERS: ATTEND Family Medicine
DX: E11.9 Type 2 diabetes mellitus without complications (principal); Z79.4 Long term (current) use of insulin; Z79.84 Long term (current) use of oral hypoglycemic drugs; Z79.899 Other long term (current) drug therapy
CPT/HCPCS: G0108

== ENCOUNTER 2019-02-01 00:54 | Outpatient (CLI) | payer MEDICAID | END 2019-02-01 23:59 | disposition home or self-care (01) | LOC: DIABETIC 00:54 | PROVIDERS: ATTEND Family Medicine | DX: E11.9 Type 2 diabetes mellitus without complications (principal); I10 Essential (primary) hypertension; Z79.4 Long term (current) use of insulin; Z79.84 Long term (current) use of oral hypoglycemic drugs; Z79.899 Other long term (current) drug therapy | CPT/HCPCS: G0108 ==

== ENCOUNTER 2019-03-08 17:56 | Emergency (ER) | payer MEDICAID ==
[~2019-03-08] VITALS: Ht 152.4 cm; Wt 74.0 kg
[2019-03-08 17:59] VITALS: BP 117/56
[2019-03-08] MEDS ORDERED: proparacaine 0.5% ophthalmic drops 15ml EACHEYE ONE (18:40)
== END 2019-03-08 19:20 | disposition home or self-care (01) ==
LOC: ER 17:57
DX: H11.31 Conjunctival hemorrhage, right eye (principal); I25.10 Atherosclerotic heart disease of native coronary artery without angina pectoris; E78.00 Pure hypercholesterolemia, unspecified; I10 Essential (primary) hypertension; E11.9 Type 2 diabetes mellitus without complications; G89.29 Other chronic pain; F41.9 Anxiety disorder, unspecified; Z98.61 Coronary angioplasty status; Z90.49 Acquired absence of other specified parts of digestive tract; Z90.710 Acquired absence of both cervix and uterus; Z98.84 Bariatric surgery status; Z98.890 Other specified postprocedural states; Z60.2 Problems related to living alone; Z88.8 Allergy status to other drugs, medicaments and biological substances; Z91.013 Allergy to seafood; Z79.84 Long term (current) use of oral hypoglycemic drugs; Z79.899 Other long term (current) drug therapy
CPT/HCPCS: 99281

== ENCOUNTER 2019-07-13 19:45 | Emergency (ER) | payer MEDICAID ==
[~2019-07-13] VITALS: Ht 152.4 cm; Wt 75.0 kg
--- NOTE | 2019-07-13 19:59 | NUR ---
spoke to MD Junior re pts reported incident and the fact that she is on blood thinners. pt is A&Ox4 and has full recall of event and denies hitting head. Per MD no need for CT head or labs
--- NOTE | 2019-07-13 20:07 | NUR ---
Full ROM of right shoulder, CMSTP intact distally on right foot
[2019-07-13] MEDS ORDERED: ondansetron 4mg rapidly disintigrating tab PO ONE (20:20)
[2019-07-13] MEDS ORDERED: HYDROcodone/acetaminophen 5mg/325mg tablet PO ONE (20:20)
[2019-07-13 21:12] VITALS: BP 143/69
== END 2019-07-13 21:13 | disposition home or self-care (01) ==
LOC: ER 19:46
DX: S80.11XA Contusion of right lower leg, initial encounter (principal); M25.551 Pain in right hip; I25.10 Atherosclerotic heart disease of native coronary artery without angina pectoris; E78.00 Pure hypercholesterolemia, unspecified; I10 Essential (primary) hypertension; E11.9 Type 2 diabetes mellitus without complications; G89.29 Other chronic pain; Z95.5 Presence of coronary angioplasty implant and graft; Z90.49 Acquired absence of other specified parts of digestive tract; Z90.710 Acquired absence of both cervix and uterus; Z98.84 Bariatric surgery status; Z91.013 Allergy to seafood; Z79.899 Other long term (current) drug therapy; V19.88XA Pedal cyclist (driver) (passenger) injured in other specified transport accidents, initial encounter; Y93.55 Activity, bike riding; Y92.413 State road as the place of occurrence of the external cause; Y99.9 Unspecified external cause status
CPT/HCPCS: 73502; 73590; 99284

== ENCOUNTER 2019-10-01 20:15 | Inpatient (IN) | payer MEDICAID ==
[~2019-10-01] VITALS: Ht 154.9 cm; Wt 77.9 kg
[2019-10-01] MEDS ORDERED: normal saline 1000ML IV soln IVB ONE (20:40)
[2019-10-01] MEDS ORDERED: ondansetron/PF 4mg/2ml inj IV ONE (20:40)
[2019-10-01 20:49] LABS: COLOR,URINE YELLOW (Yellow); GLUCOSE, URINE 500 mg/dl (Neg); KETONES,URINE NEGATIVE (Neg); LEUKOCYTE ESTERASE ,URINE NEGATIVE (Neg); NITRITES, URINE NEGATIVE (Neg); OCCULT BLOOD,URINE LARGE (Neg); PH,URINE 5.5 (4.8-8.0); PROTEIN,URINE 100 mg/dl (Neg)
[2019-10-01 20:49] LABS: BASOPHILS % (AUTO) 0.7 % (0-1); EOSINOPHILS % (AUTO) 0.9 % (0-6); HEMATOCRIT 36.4 % (35.0-45.0); HEMOGLOBIN 12.1 g/dl (12.0-16.0); LYMPHOCYTES # (AUTO) 2.2 X10'3 (1.1-4.8); LYMPHOCYTES % (AUTO) 42.4 % (21-51); MEAN CORPUSCULAR HEMOGLOBIN 27.2 PG (27.0-31.0); MEAN CORPUSCULAR HGB CONC 33.3 g/dL (33.0-36.5); MEAN CORPUSCULAR VOLUME 81.6 FL (78-98); MEAN PLATELET VOLUME 7.4 FL (7.4-10.4); MONOCYTES # (AUTO) 0.3 X10'3 (0-0.9); MONOCYTES % (AUTO) 5.3 % (2-12); NEUTROPHILS # (AUTO) 2.7 X10'3 (1.8-7.7); NEUTROPHILS % (AUTO) 50.7 % (42-75); PLATELET COUNT 229 X10'3 (140-440); RED BLOOD COUNT 4.46 X10'6 (4.20-5.60); RED CELL DISTRIBUTION WIDTH 13.8 % (11.5-14.5); WHITE BLOOD COUNT 5.2 X10'3 (4.5-11.0)
[2019-10-01] MEDS: morphine 4 MG/ML inj SYRINge IV PRN ×2 (20:49→22:42)
[2019-10-01 20:58] LABS: CLARITY,URINE SLIGHTLY CLOUDY (Clear); UA COLLECTION TYPE CLN CATCH MIDSTREAM
[2019-10-01 20:59] LABS: BACTERIA,URINE FEW /HPF (Neg); RBC,URINE 50-100 /HPF (0-2); SQUAMOUS EPITHELIAL CELL,UR FEW /LPF (FEW); WBC,URINE 0-4 /HPF (0-4); YEAST FEW /HPF (NEGATIVE)
[2019-10-01 21:00] LABS: ALANINE AMINOTRANSFERASE 18 U/L (12-78); ALBUMIN/GLOBULIN RATIO 1.2 (1.1-1.5); ALKALINE PHOSPHATASE 88 IU/L (46-116); ANION GAP 13 (8-16); ASPARTATE AMINO TRANSFERASE 13 U/L (10-37); BILIRUBIN,TOTAL 0.3 MG/DL (0.1-1.0); BLOOD UREA NITROGEN 12 MG/DL (7-18); BUN/CREATININE RATIO 11.1 (6.6-38.0); CALCIUM 9.3 MG/DL (8.5-10.1); CHLORIDE 104 MMOL/L (99-107); CREATININE 1.08 MG/DL (0.40-0.90); GLUCOSE 259 MG/DL (70-104); LIPASE 177 U/L (73-393); POTASSIUM 4.1 MMOL/L (3.5-5.1); SODIUM 140 MMOL/L (135-145); TOTAL CARBON DIOXIDE 23.5 MMOL/L (24-32); TOTAL PROTEIN 7.4 G/DL (6.4-8.2); eGFR 53 ML/MIN
[2019-10-01] MEDS ORDERED: LEVO200T8 PO (21:55)
[2019-10-01] MEDS ORDERED: HYDR50TA65 PO (21:55)
[2019-10-01] MEDS ORDERED: ATOR40TA71 PO (21:55)
[2019-10-01] MEDS ORDERED: INSU100I31 SUBCUT (21:55)
[2019-10-01] MEDS ORDERED: TRAZ-256 PO (21:55)
[2019-10-01] MEDS ORDERED: INSU100I8 SQ (21:55)
[2019-10-01] MEDS ORDERED: ondansetron/PF 4mg/2ml inj IV PRN (22:25)
[2019-10-01] MEDS ORDERED: acetaminophen 325mg tablet PO PRN (22:25)
[2019-10-01] MEDS ORDERED: mag hydrox/Alum hydrox/simeth 30ml oral suspension PO PRN (22:25)
[2019-10-01] MEDS ORDERED: magnesium hydroxide 30ml (MOM) UD suspension PO PRN (22:25)
[2019-10-01] MEDS ORDERED: MESSAGE TO PHARMACY PO ONE (22:30)
[2019-10-01] MEDS ORDERED: naloxone 0.4 mg/ml inj IV PRN (22:30)
[2019-10-01] MEDS ORDERED: insulin Lispro (HumaLOG) vial - multi-dose SQ SCH (22:30)
[2019-10-01] MEDS ORDERED: CADD PCA waste documentation MC PRN (22:30)
[2019-10-01] MEDS ORDERED: dextrose 50%-water 50ml dispensing syringe IV PRN ×2 (22:30)
[2019-10-01] MEDS ORDERED: glucagon, human recombinant 1mg kit SUBCUT PRN (22:30)
[2019-10-01] MEDS ORDERED: dextrose ORAL solution 15 GM/59 ML bottle PO PRN ×2 (22:30)
[2019-10-01] MEDS ORDERED: traZODone 50mg tablet PO PRN (22:35)
[2019-10-01] MEDS ORDERED: hydrOXYzine 25 MG tablet PO PRN (22:35)
[2019-10-01] MEDS: normal saline 1000ml 1,000 ML IV SCH (22:44)
[2019-10-01 22:52] LABS: HEMOGLOBIN A1C 7.8 % (4.5-6.2)
[2019-10-01] MEDS: HYDROmorphone/NS 1 mg/ml CADD 50 ML IV SCH (23:00)
--- NOTE | 2019-10-01 23:31 | NUR ---
Patient in room ED 8. I have received report from PER Corrales and had the opportunity to ask questions and assume patient care.
[2019-10-01 23:54] VITALS: BP 139/77
--- NOTE | 2019-10-02 | NUR ---
Patient states she must wear a binder from skin reduction surgery per MD orders. Brought in her own binder.
--- NOTE | 2019-10-02 | NUR ---
Per Savanna RN in ER, patient is allergic to animal derived insulin. Pharmacy went to see patient while in ER and confirmed that insulin we have in stock for patient is okay to use.
[2019-10-02] MEDS: HYDROmorphone/NS 1 mg/ml CADD 50 ML IV SCH ×11 (01:00→21:00)
[2019-10-02 06:05] LABS: PARTIAL THROMBOPLASTIN TIME 29 SECONDS (22-32)
[2019-10-02 06:06] LABS: BASOPHILS % (AUTO) 0.4 % (0-1); EOSINOPHILS # (AUTO) 0.1 X10'3 (0-0.9); EOSINOPHILS % (AUTO) 1.3 % (0-6); HEMATOCRIT 31.6 % (35.0-45.0); HEMOGLOBIN 10.5 g/dl (12.0-16.0); LYMPHOCYTES # (AUTO) 2.6 X10'3 (1.1-4.8); LYMPHOCYTES % (AUTO) 46.9 % (21-51); MEAN CORPUSCULAR HEMOGLOBIN 27.5 PG (27.0-31.0); MEAN CORPUSCULAR HGB CONC 33.2 g/dL (33.0-36.5); MEAN CORPUSCULAR VOLUME 82.7 FL (78-98); MEAN PLATELET VOLUME 7.3 FL (7.4-10.4); MONOCYTES # (AUTO) 0.3 X10'3 (0-0.9); MONOCYTES % (AUTO) 5.2 % (2-12); NEUTROPHILS # (AUTO) 2.6 X10'3 (1.8-7.7); NEUTROPHILS % (AUTO) 46.2 % (42-75); PLATELET COUNT 176 X10'3 (140-440); RED BLOOD COUNT 3.82 X10'6 (4.20-5.60); WHITE BLOOD COUNT 5.7 X10'3 (4.5-11.0)
[2019-10-02 06:09] LABS: ALANINE AMINOTRANSFERASE 15 U/L (12-78); ALBUMIN 3.2 G/DL (3.4-5.0); ALBUMIN/GLOBULIN RATIO 1.1 (1.1-1.5); ALKALINE PHOSPHATASE 71 IU/L (46-116); ANION GAP 9 (8-16); ASPARTATE AMINO TRANSFERASE 12 U/L (10-37); BILIRUBIN,TOTAL 0.3 MG/DL (0.1-1.0); BLOOD UREA NITROGEN 12 MG/DL (7-18); BUN/CREATININE RATIO 17.6 (6.6-38.0); CALCIUM 8.6 MG/DL (8.5-10.1); CHLORIDE 108 MMOL/L (99-107); CREATININE 0.68 MG/DL (0.40-0.90); GLUCOSE 131 MG/DL (70-104); SODIUM 142 MMOL/L (135-145); TOTAL CARBON DIOXIDE 24.7 MMOL/L (24-32); TOTAL PROTEIN 6.1 G/DL (6.4-8.2); eGFR > 90 ML/MIN
--- NOTE | 2019-10-02 06:25 | NUR ---
Problems reprioritized. Patient report given, questions answered & plan of care reviewed with PER Johnston.
--- NOTE | 2019-10-02 06:46 | NUR ---
Patient in room WIL 350B. I have received report from PER LANDRUM and had the opportunity to ask questions and assume patient care.
[2019-10-02 07:33] VITALS: BP 135/57
[2019-10-02] MEDS: levoTHYROXINE 100mcg tablet PO SCH (07:37)
[2019-10-02] MEDS ORDERED: magnesium Cl slow-release 64mg tablet PO PRN (10:30)
[2019-10-02] MEDS ORDERED: potassium CL 10mEq/100ml bag 100 ML IV PRN (10:30)
[2019-10-02] MEDS ORDERED: potassium Cl 20 mEq SR tablet PO PRN ×2 (10:30)
[2019-10-02] MEDS ORDERED: magnesium 4gm in 100ml NS 100 ML IV PRN (10:30)
[2019-10-02] MEDS: K and/or MAG REPLACEMENT MC SCH ×2 (10:30→20:00)
[2019-10-02 11:00] VITALS: BP 131/58
[2019-10-02] MEDS: lisinopril 5mg tablet PO SCH (14:58)
--- NOTE | 2019-10-02 15:27 | NUR ---
DM Consult: A1C 7.8. Pt seen by RD for written/verbal DM ed w/ RD contact information provided. Pt declined verbal DM ed at this time reports A1C down from 9 8 weeks prior. Last A1C on record 9.0 12/2018. Hx gastric sleeve just advanced to carb controlled diet. RD encouraged pt to contact dietitian's office if further questions/concerns. Addendum: 10/02/19 at [address] Amended: Links added.
--- NOTE | 2019-10-02 18:16 | NUR ---
Problems reprioritized. Patient report given, questions answered & plan of care reviewed with PER LANDRUM.
--- NOTE | 2019-10-02 18:25 | NUR ---
Patient in room WIL 350. I have received report from PER Johnston and had the opportunity to ask questions and assume patient care.
[2019-10-02 19:39] VITALS: BP 116/56
[2019-10-02] MEDS ORDERED: insulin glargine (Lantus) pen - multi-dose SQ SCH (21:00)
[2019-10-02] MEDS ORDERED: tamsulosin 0.4mg capsule PO SCH (21:00)
[2019-10-02] MEDS ORDERED: atorvastatin 20mg tablet PO SCH (21:00)
[2019-10-02] MEDS ORDERED: HYDROcodone/acetaminophen 5mg/325mg tablet PO PRN (22:00)
[2019-10-03] VITALS: BP 109/49
--- NOTE | 2019-10-03 00:19 | NUR ---
CADD DC'd with Sabra Murillo RN. Wasted 33mL Dilaudid. Current CADD settings at DC are: Residual 34.5 mL Administered 14.5 mL 47 doses of 60 pressed administered.
--- NOTE | 2019-10-03 00:50 | NUR ---
Agree with Savanna Tilley RNs' note with regard to cadd waste.
[2019-10-03] MEDS: normal saline 1000ml 1,000 ML IV SCH (01:51)
[2019-10-03] MEDS: HYDROmorphone inj. 0.5 MG/0.5 ML DISP.SYRIN IV PRN ×2 (02:33→09:47)
--- NOTE | 2019-10-03 02:38 | NUR ---
Patient has felt the need to void for most of the night. Is not feeling discomfort or pain, does not appear to be distended. Bladder scanned with an amount of 62 mL. Total of 350 out so far for NOC shift. Will continue to monitor.
--- NOTE | 2019-10-03 04:43 | NUR ---
Pt req blood glucose check; has a headache which is a signs for her for low blood sugar. BG 95. Administered snack and tylenol for headache.
--- NOTE | 2019-10-03 04:50 | NUR ---
Pt reports that she had urinary output of 250 mL without difficulty. Urine flowing freely and no longer has the urge to void. Feels as if she has emptied bladder completely.
[2019-10-03 05:25] LABS: BASOPHILS % (AUTO) 0.5 % (0-1); EOSINOPHILS # (AUTO) 0.1 X10'3 (0-0.9); EOSINOPHILS % (AUTO) 1.4 % (0-6); HEMATOCRIT 30.6 % (35.0-45.0); HEMOGLOBIN 10.1 g/dl (12.0-16.0); LYMPHOCYTES # (AUTO) 2.1 X10'3 (1.1-4.8); LYMPHOCYTES % (AUTO) 36.5 % (21-51); MEAN CORPUSCULAR HEMOGLOBIN 27.5 PG (27.0-31.0); MEAN CORPUSCULAR HGB CONC 33.1 g/dL (33.0-36.5); MEAN CORPUSCULAR VOLUME 83.1 FL (78-98); MEAN PLATELET VOLUME 7.2 FL (7.4-10.4); MONOCYTES # (AUTO) 0.3 X10'3 (0-0.9); MONOCYTES % (AUTO) 4.7 % (2-12); NEUTROPHILS # (AUTO) 3.2 X10'3 (1.8-7.7); NEUTROPHILS % (AUTO) 56.9 % (42-75); PLATELET COUNT 176 X10'3 (140-440); RED BLOOD COUNT 3.68 X10'6 (4.20-5.60); RED CELL DISTRIBUTION WIDTH 14.1 % (11.5-14.5); WHITE BLOOD COUNT 5.7 X10'3 (4.5-11.0)
[2019-10-03 05:40] LABS: ALANINE AMINOTRANSFERASE 13 U/L (12-78); ALBUMIN/GLOBULIN RATIO 1.1 (1.1-1.5); ALKALINE PHOSPHATASE 76 IU/L (46-116); ANION GAP 7 (8-16); ASPARTATE AMINO TRANSFERASE 13 U/L (10-37); BILIRUBIN,TOTAL 0.3 MG/DL (0.1-1.0); BLOOD UREA NITROGEN 7 MG/DL (7-18); BUN/CREATININE RATIO 9.6 (6.6-38.0); CALCIUM 8.5 MG/DL (8.5-10.1); CHLORIDE 104 MMOL/L (99-107); CREATININE 0.73 MG/DL (0.40-0.90); GLUCOSE 105 MG/DL (70-104); MAGNESIUM 1.3 MG/DL (1.5-2.4); PHOSPHORUS 4.3 MG/DL (2.3-4.5); POTASSIUM 3.7 MMOL/L (3.5-5.1); SODIUM 137 MMOL/L (135-145); TOTAL CARBON DIOXIDE 26.5 MMOL/L (24-32); TOTAL PROTEIN 5.8 G/DL (6.4-8.2); eGFR 84 ML/MIN
--- NOTE | 2019-10-03 06:30 | NUR ---
Patient in room [facility] 350. I have received report from Savanna Tilley RN and had the opportunity to ask questions and assume patient care.
--- NOTE | 2019-10-03 06:40 | NUR ---
Problems reprioritized. Patient report given, questions answered & plan of care reviewed with PER Oconnell.
[2019-10-03 07:00] VITALS: BP 98/56
[2019-10-03] MEDS: lisinopril 5mg tablet PO SCH (08:00)
[2019-10-03] MEDS: K and/or MAG REPLACEMENT MC SCH (08:03)
[2019-10-03] MEDS: levoTHYROXINE 100mcg tablet PO SCH (08:04)
[2019-10-03] MEDS ORDERED: LISI2.5T2 PO (10:08)
[2019-10-03] MEDS ORDERED: FLO0.4C PO (10:08)
[2019-10-03] MEDS ORDERED: HYDR-4383 PO (10:09)
--- NOTE | 2019-10-03 10:27 | NUR ---
Mssg left for Dr Foss. Need order for Cytology for possible stone passed in urine per lab.
[2019-10-03 11:00] VITALS: BP 109/55
--- NOTE | 2019-10-03 13:15 | NUR ---
Pt stable and appropriate for d/c. PIV d/c'd, cannula intact. Reviewed with Pt all d/c instructions, meds and followup appts to be made by pt for PCP and Dr Foss. Prescriptions escripted to Jason Nunez. Pt to call PCP for any questions, concerns or worsening symptoms, or report to nearest ED. Escorted to front lobby by staff member via w/c with all personal belongings and accompanied by family. D/C'd home by private vehicle.
== END 2019-10-03 13:22 | disposition home or self-care (01) | DRG 465 ==
LOC: ER 20:16 → ED HOLD 22:22 → SUR 3N 23:44
PROVIDERS: ADMIT Internal Medicine; ATTEND Family Medicine
DX: N13.2 Hydronephrosis with renal and ureteral calculous obstruction (principal); E03.9 Hypothyroidism, unspecified; E11.9 Type 2 diabetes mellitus without complications; E78.00 Pure hypercholesterolemia, unspecified; E78.5 Hyperlipidemia, unspecified; I10 Essential (primary) hypertension; G89.29 Other chronic pain; F41.9 Anxiety disorder, unspecified; F32.9 Major depressive disorder, single episode, unspecified; E66.9 Obesity, unspecified; I25.10 Atherosclerotic heart disease of native coronary artery without angina pectoris; Z79.890 Hormone replacement therapy; Z80.6 Family history of leukemia; Z82.49 Family history of ischemic heart disease and other diseases of the circulatory system; Z83.3 Family history of diabetes mellitus; Z87.442 Personal history of urinary calculi; Z90.710 Acquired absence of both cervix and uterus; Z95.5 Presence of coronary angioplasty implant and graft; Z98.84 Bariatric surgery status; Z88.8 Allergy status to other drugs, medicaments and biological substances; Z88.1 Allergy status to other antibiotic agents; Z91.013 Allergy to seafood; Z68.32 Body mass index [BMI] 32.0-32.9, adult
CPT/HCPCS: 36415; 74176; 80053; 81001; 82948; 83036; 83690; 83735; 84100; 85025; 85610; 85730; 87081; 93005; 96374; 99285; G0378; J1170; J1815; J2270; J2405; J7030; Q0177

== ENCOUNTER 2020-01-24 18:28 | Emergency (ER) | payer MEDICAID ==
[~2020-01-24] VITALS: Ht 154.9 cm; Wt 78.6 kg
[~2020-01-24 18:28] MED LIST changes: -ATI1T PO; -ATOR20TA66 PO; +ATOR40TA71 PO; -DULO20CA18 PO; -DULO30CA52 PO; -FENO145T25 PO; -HYDR-3686 PO; +HYDR-4383 PO; +HYDR50TA65 PO; +INSU100I31 SUBCUT; +INSU100I8 SQ; -LEVO100T9 PO; +LEVO200T8 PO; +LISI2.5T2 PO; -METF-950 PO; -TRAM50TA2 PO; -TRAZ-251 PO; +TRAZ-256 PO
[2020-01-24 19:09] LABS: URINE HCG NEGATIVE (NEG)
[2020-01-24 19:11] LABS: CLARITY,URINE SLIGHTLY CLOUDY (Clear); COLOR,URINE YELLOW (Yellow); GLUCOSE, URINE NEGATIVE (Neg); KETONES,URINE NEGATIVE (Neg); LEUKOCYTE ESTERASE ,URINE TRACE (Neg); NITRITES, URINE NEGATIVE (Neg); OCCULT BLOOD,URINE NEGATIVE (Neg); PROTEIN,URINE NEGATIVE (Neg)
[2020-01-24 19:18] LABS: BASOPHILS % (AUTO) 0.7 % (0-1); EOSINOPHILS # (AUTO) 0.1 X10'3 (0-0.9); HEMATOCRIT 34.7 % (35.0-45.0); HEMOGLOBIN 11.8 g/dl (12.0-16.0); LYMPHOCYTES # (AUTO) 2.2 X10'3 (1.1-4.8); LYMPHOCYTES % (AUTO) 39.3 % (21-51); MEAN CORPUSCULAR HEMOGLOBIN 28.3 PG (27.0-31.0); MEAN CORPUSCULAR HGB CONC 33.9 g/dL (33.0-36.5); MEAN CORPUSCULAR VOLUME 83.5 FL (78-98); MEAN PLATELET VOLUME 6.7 FL (7.4-10.4); MONOCYTES # (AUTO) 0.2 X10'3 (0-0.9); MONOCYTES % (AUTO) 4.1 % (2-12); NEUTROPHILS # (AUTO) 3.1 X10'3 (1.8-7.7); NEUTROPHILS % (AUTO) 54.9 % (42-75); PLATELET COUNT 239 X10'3 (140-440); RED BLOOD COUNT 4.16 X10'6 (4.20-5.60); RED CELL DISTRIBUTION WIDTH 16.2 % (11.5-14.5); WHITE BLOOD COUNT 5.7 X10'3 (4.5-11.0)
[2020-01-24 19:21] LABS: UA COLLECTION TYPE NON-SPECIFIED
[2020-01-24 19:23] LABS: BACTERIA,URINE 1+ /HPF (Neg); RBC,URINE NONE SEEN /HPF (0-2); SQUAMOUS EPITHELIAL CELL,UR MODERATE /LPF (FEW)
[2020-01-24 19:33] LABS: ALANINE AMINOTRANSFERASE 16 U/L (12-78); ALBUMIN/GLOBULIN RATIO 1.3 (1.1-1.5); ALKALINE PHOSPHATASE 82 IU/L (46-116); ANION GAP 6 (8-16); ASPARTATE AMINO TRANSFERASE 12 U/L (10-37); BILIRUBIN,TOTAL 0.3 MG/DL (0.1-1.0); BLOOD UREA NITROGEN 11 MG/DL (7-18); BUN/CREATININE RATIO 11.8 (6.6-38.0); CALCIUM 9.1 MG/DL (8.5-10.1); CHLORIDE 105 MMOL/L (99-107); CREATININE 0.93 MG/DL (0.40-0.90); GLUCOSE 185 MG/DL (70-104); LIPASE 139 U/L (73-393); POTASSIUM 3.9 MMOL/L (3.5-5.1); SODIUM 139 MMOL/L (135-145); TOTAL CARBON DIOXIDE 27.7 MMOL/L (24-32); TOTAL PROTEIN 7.1 G/DL (6.4-8.2); eGFR 63 ML/MIN
[2020-01-24] MEDS ORDERED: ondansetron/PF 4mg/2ml inj IV ONE (21:45)
[2020-01-24] MEDS ORDERED: morphine 2 MG/ML inj. syringe IV ONE (21:45)
[2020-01-24] MEDS ORDERED: CEPH250T PO (22:38)
[2020-01-24] MEDS ORDERED: CefTRIAXone/D5W-Rocephin 1gm 50 ML IV ONE (22:40)
[2020-01-24 23:32] VITALS: BP 128/78
== END 2020-01-24 23:35 | disposition home or self-care (01) ==
LOC: ER 18:29
DX: N39.0 Urinary tract infection, site not specified (principal); I25.10 Atherosclerotic heart disease of native coronary artery without angina pectoris; I10 Essential (primary) hypertension; E78.00 Pure hypercholesterolemia, unspecified; E11.9 Type 2 diabetes mellitus without complications; G89.29 Other chronic pain; F41.9 Anxiety disorder, unspecified; Z90.49 Acquired absence of other specified parts of digestive tract; Z98.890 Other specified postprocedural states; Z98.84 Bariatric surgery status; Z88.6 Allergy status to analgesic agent; Z88.9 Allergy status to unspecified drugs, medicaments and biological substances; Z88.7 Allergy status to serum and vaccine; Z91.013 Allergy to seafood; Z79.899 Other long term (current) drug therapy
CPT/HCPCS: 36415; 80053; 81001; 81025; 83690; 85025; 87088; 96365; 96375; 99284; J0696; J2270; J2405

== ENCOUNTER 2020-09-14 14:59 | Emergency (ER) | payer MEDICAID ==
[~2020-09-14] VITALS: Ht 154.9 cm; Wt 81.0 kg
[2020-09-14 15:17] VITALS: BP 174/63
[2020-09-14] MEDS ORDERED: ketorolac tromethamine 15mg/ml inj. IM ONE (16:15)
== END 2020-09-14 16:52 | disposition home or self-care (01) ==
LOC: ER 15:00
DX: S69.92XA Unspecified injury of left wrist, hand and finger(s), initial encounter (principal); S60.512A Abrasion of left hand, initial encounter; I25.10 Atherosclerotic heart disease of native coronary artery without angina pectoris; E78.00 Pure hypercholesterolemia, unspecified; I10 Essential (primary) hypertension; E11.9 Type 2 diabetes mellitus without complications; G89.29 Other chronic pain; F41.9 Anxiety disorder, unspecified; Z90.89 Acquired absence of other organs; Z90.49 Acquired absence of other specified parts of digestive tract; Z90.710 Acquired absence of both cervix and uterus; Z98.890 Other specified postprocedural states; Z60.2 Problems related to living alone; Z88.6 Allergy status to analgesic agent; Z88.8 Allergy status to other drugs, medicaments and biological substances; Z91.013 Allergy to seafood; Z79.4 Long term (current) use of insulin; Z79.899 Other long term (current) drug therapy; X58.XXXA Exposure to other specified factors, initial encounter; Y93.89 Activity, other specified; Y92.89 Other specified places as the place of occurrence of the external cause; Y99.8 Other external cause status
CPT/HCPCS: 73130; 96372; 99283; J1885

== ENCOUNTER 2020-10-29 19:03 | Emergency (ER) | payer OTHER, MEDICAID ==
[~2020-10-29] VITALS: Ht 170.2 cm; Wt 80.9 kg
[~2020-10-29 19:03] MED LIST changes: +LISI2.5T14 PO; -LISI2.5T2 PO
[2020-10-29 19:11] VITALS: BP 148/85
--- NOTE | 2020-10-29 19:19 | NUR ---
REPORT N [id number]
[2020-10-29] MEDS ORDERED: HYDROcodone/acetaminophen 5mg/325mg tablet PO ONE (19:25)
[2020-10-29] MEDS ORDERED: HYDR-3965 PO (20:07)
[2020-10-29] MEDS ORDERED: CYCL-1 PO (20:07)
== END 2020-10-29 20:14 | disposition home or self-care (01) ==
LOC: ER 19:04
DX: S39.012A Strain of muscle, fascia and tendon of lower back, initial encounter (principal); M62.830 Muscle spasm of back; I25.10 Atherosclerotic heart disease of native coronary artery without angina pectoris; E78.00 Pure hypercholesterolemia, unspecified; I10 Essential (primary) hypertension; E11.9 Type 2 diabetes mellitus without complications; G89.29 Other chronic pain; F41.9 Anxiety disorder, unspecified; Z90.89 Acquired absence of other organs; Z90.49 Acquired absence of other specified parts of digestive tract; Z90.710 Acquired absence of both cervix and uterus; Z98.890 Other specified postprocedural states; Z91.013 Allergy to seafood; Z88.8 Allergy status to other drugs, medicaments and biological substances; Z79.4 Long term (current) use of insulin; Z79.899 Other long term (current) drug therapy; V09.9XXA Pedestrian injured in unspecified transport accident, initial encounter; Y93.89 Activity, other specified; Y92.89 Other specified places as the place of occurrence of the external cause; Y99.8 Other external cause status
CPT/HCPCS: 72100; 73502; 99284

== ENCOUNTER 2021-10-17 17:20 | Emergency (ER) | payer BC, MEDICAID ==
[~2021-10-17] VITALS: Ht 152.4 cm; Wt 86.4 kg
[~2021-10-17 17:20] MED LIST changes: +CYCL-1 PO
[2021-10-17] MEDS ORDERED: famotidine 20mg tablet PO ONE (22:15)
[2021-10-17] MEDS ORDERED: mag hydrox/Alum hydrox/simeth 30ml oral suspension PO ONE (22:15)
[2021-10-17] MEDS ORDERED: LIDOcaine Viscous 15ml cup MM ONE (22:15)
[2021-10-17] MEDS ORDERED: MAG355OR18 PO (22:16)
[2021-10-17] MEDS ORDERED: PANT-47 PO (22:16)
[2021-10-17] MEDS ORDERED: FAMO-128 PO (22:16)
[2021-10-17 22:30] VITALS: BP 119/64
[2021-10-18] MEDS ORDERED: pantoprazole 40mg Tablet.DR PO SCH (07:30)
== END 2021-10-17 22:32 | disposition home or self-care (01) ==
LOC: ER 17:21
DX: R10.10 Upper abdominal pain, unspecified (principal); I10 Essential (primary) hypertension; G89.29 Other chronic pain; I25.10 Atherosclerotic heart disease of native coronary artery without angina pectoris; E11.9 Type 2 diabetes mellitus without complications; E78.00 Pure hypercholesterolemia, unspecified; Z88.6 Allergy status to analgesic agent; Z88.8 Allergy status to other drugs, medicaments and biological substances; Z91.013 Allergy to seafood; Z91.041 Radiographic dye allergy status; Z98.890 Other specified postprocedural states; Z90.49 Acquired absence of other specified parts of digestive tract; Z90.710 Acquired absence of both cervix and uterus
CPT/HCPCS: 99284

== ENCOUNTER 2021-12-25 05:15 | Day surgery (SDC) | payer BC, MEDICAID ==
[2021-12-18 14:51] LABS: BASOPHILS % (AUTO) 0.5 % (0-1); EOSINOPHILS # (AUTO) 0.1 X10'3 (0-0.9); EOSINOPHILS % (AUTO) 1.3 % (0-6); LYMPHOCYTES # (AUTO) 2.4 X10'3 (1.1-4.8); LYMPHOCYTES % (AUTO) 30.3 % (21-51); MEAN CORPUSCULAR HEMOGLOBIN 27.5 PG (27.0-31.0); MEAN CORPUSCULAR HGB CONC 33.5 g/dL (33.0-36.5); MEAN CORPUSCULAR VOLUME 82.2 FL (78-98); MEAN PLATELET VOLUME 7.2 FL (7.4-10.4); MONOCYTES # (AUTO) 0.3 X10'3 (0-0.9); MONOCYTES % (AUTO) 4.3 % (2-12); NEUTROPHILS # (AUTO) 5.1 X10'3 (1.8-7.7); NEUTROPHILS % (AUTO) 63.6 % (42-75); PRE OP HEMATOCRIT 38.2 % (35.0-45.0); PRE OP HEMOGLOBIN 12.8 g/dL (12.0-16.0); PRE OP PLATELET COUNT 232 X10'3 (140-440); RED BLOOD COUNT 4.65 X10'6 (4.20-5.60); RED CELL DISTRIBUTION WIDTH 16.2 % (11.5-14.5)
[2021-12-18 15:06] LABS: ALBUMIN 4.3 G/DL (3.4-5.0); ALBUMIN/GLOBULIN RATIO 1.4 (1.1-1.5); ALKALINE PHOSPHATASE 75 IU/L (46-116); BLOOD UREA NITROGEN 10 MG/DL (7-18); BUN/CREATININE RATIO 7.8 (6.6-38.0); CALCIUM 9.7 MG/DL (8.5-10.1); CHLORIDE 95 MMOL/L (99-107); CREATININE 1.29 MG/DL (0.40-0.90); PRE OP ALT 31 U/L (30-65); PRE OP ANION GAP 14 (8-16); PRE OP AST 19 U/L (10-37); PRE OP BILIRUB, TOTAL 0.4 MG/DL (0.0-1.0); PRE OP POTASSIUM 3.8 MMOL/L (3.4-5.1); PRE OP SODIUM 134 MMOL/L (135-145); TOTAL CARBON DIOXIDE 25.4 MMOL/L (24-32); TOTAL PROTEIN 7.3 G/DL (6.4-8.2); eGFR 43 ML/MIN
[2021-12-18 15:13] LABS: PRE OP GLUCOSE 429 MG/DL (70-104)
[~2021-12-25] VITALS: Ht 152.4 cm; Wt 85.3 kg
[~2021-12-25 05:15] MED LIST changes: +ASPI-1265 PO; -ATOR40TA71 PO; +CHOL10008 PO; -CYCL-1 PO; +DULO30CA52 PO; +DULO60CA65 PO; +ERTU15TA PO; +ESTR0.5T28 PO; +FURO-150 PO; -HYDR-4383 PO; +INSU100I45 SQ; +LEVO125T8 PO; -LEVO200T8 PO; -LISI2.5T14 PO; +LORA-269 PO; +METF-900 PO; +METO25TA6 PO; +PANT40TA54 PO; +ROSU40TA22 PO; +TRAM50TA2 PO; +TRAZ-251 PO; -TRAZ-256 PO; +ringers solution, lacted 1,000 ML IV SCH
[2021-12-25] MEDS ORDERED: famotidine 20mg tablet PO ONE (05:30)
[2021-12-25] MEDS ORDERED: ceFAZolin inj. 2,000 MG in dextrose 5%-water 100 ML IV ONE (05:30)
[2021-12-25] MEDS ORDERED: DOCUMENT DATE & TIME OF BETA-BLOCKER PO ONE (05:30)
[2021-12-25 05:45] VITALS: BP 119/67
--- NOTE | 2021-12-25 06:28 | NUR ---
PT DISCONTINUED HER INSULIN SQ PUMP AT 0615 FOR DECREASING GLUCOSE LEVELS. GLUCOSE 67 @ 0626, SMALL AMOUNT OF APPLE JUICE GIVEN, PT ASYMPTOMATIC. WILL CONTINUE TO MONITOR WITH PT DEVICE. AWAITING INSTRUCTIONS BY ANESTHESIA. CALLED THE OR, CASE TO BE MOVED TO THE FIRST CASE IF POSSIBLE. Addendum: 12/25/21 at 0638 by Suni Wade RN Amended: Links added.
[2021-12-25] MEDS ORDERED: BUPIVAcaine/PF 2.5mg/ml (0.25%) 10ml vial ONE (06:40)
[2021-12-25] MEDS ORDERED: LIDOcaine 0.5% (5mg/ml) 50ml vial ONE (07:25)
[2021-12-25] MEDS ORDERED: fentaNYL/PF 50MCG/1 ML 2ML syringe ONE (07:27)
[2021-12-25] MEDS ORDERED: midazolam 1 mg/ML 2ml injection ONE (07:28)
[2021-12-25] MEDS ORDERED: morphine 4 MG/ML inj SYRINge IV PRN (07:40)
[2021-12-25] MEDS ORDERED: morphine 2 MG/ML inj. syringe IV PRN (07:40)
[2021-12-25] MEDS ORDERED: proCHLORperazine 10 MG/2 ml inj IV PRN (07:40)
[2021-12-25] MEDS ORDERED: meperidine/PF 25mg/ml syringe IV PRN (07:40)
[2021-12-25] MEDS ORDERED: fentaNYL/PF 50MCG/1 ML 2ML syringe IV PRN ×2 (07:40)
[2021-12-25] MEDS ORDERED: acetaminophen 1,000mg/100ml IV 100 ML IV PRN (07:40)
[2021-12-25] MEDS ORDERED: ondansetron/PF 4mg/2ml inj IV PRN (07:40)
[2021-12-25] MEDS ORDERED: ringers solution, lacted 1,000 ML IV SCH (07:40)
[2021-12-25] MEDS ORDERED: propofol inj 20 ML IV ONE (08:04)
[2021-12-25 08:08] VITALS: BP 130/80
--- NOTE | 2021-12-25 08:08 | NUR ---
Received from OR via [facility] , accompanied by Anesthesiologist ENMA and report given by Anesthesiolgist. PATIENT WITH 20GPIV IN LEFT UE AND DRESSING IN RIGHT WRIST AND ELBOW. PATIENT VSS. DENIES PAIN AT THIS TIME BG OF 82. ICE DONNED TO RIGHT UE. Addendum: 12/25/21 at 0831 by Robb Rosa RN, RN Amended: Links added.
[2021-12-25 08:10] VITALS: BP 128/78
[2021-12-25 08:20] VITALS: BP 133/82
[2021-12-25 08:30] VITALS: BP 130/78
[2021-12-25 08:40] VITALS: BP 126/71
--- NOTE | 2021-12-25 08:48 | NUR ---
PT HAS MET D/C CRITERIA. IV D/C'D. VSS. DRESSING C/D/I. ICE INTACT. PT STILL HAS TINGLING TO RIGHT HAND WHICH IS TO BE EXPECTED AND MD AWARE. I HAVE REVIEWED D/C INSTRUCTIONS WITH PATIENT AND SHE HAS VERBALIZED UNDERSTANDING OF INSTRUCTIONS. PATIENT D/C HOME WITH ALL BELONGINGS. Addendum: 12/25/21 at 0852 by Robb Rosa RN, RN Amended: Links added.
== END 2021-12-25 08:48 | disposition home or self-care (01) ==
LOC: PAS 05:15
PROVIDERS: ATTEND Orthopaedic Surgery Hand Surgery
DX: G56.01 Carpal tunnel syndrome, right upper limb (principal); G56.21 Lesion of ulnar nerve, right upper limb; K21.9 Gastro-esophageal reflux disease without esophagitis; E03.9 Hypothyroidism, unspecified; F41.9 Anxiety disorder, unspecified; Z79.899 Other long term (current) drug therapy; Z90.710 Acquired absence of both cervix and uterus; Z98.890 Other specified postprocedural states; Z91.041 Radiographic dye allergy status; Z95.1 Presence of aortocoronary bypass graft; Z90.49 Acquired absence of other specified parts of digestive tract
CPT/HCPCS: 29848; 36415; 64718; 80053; 82948; 85025; 87811; 93005; J0690; J2250; J2704; J3010; J3490; J7030; J7060; J7120; Z7506; Z7512; A4215; A6449; A7000

== ENCOUNTER 2022-01-22 05:26 | Day surgery (SDC) | payer BC, MEDICAID ==
[2022-01-13 13:42] LABS: BASOPHILS # (AUTO) 0.1 X10'3 (0-0.2); BASOPHILS % (AUTO) 0.7 % (0-1); EOSINOPHILS # (AUTO) 0.2 X10'3 (0-0.9); EOSINOPHILS % (AUTO) 2.3 % (0-6); LYMPHOCYTES # (AUTO) 2.9 X10'3 (1.1-4.8); LYMPHOCYTES % (AUTO) 39.4 % (21-51); MEAN CORPUSCULAR HEMOGLOBIN 27.9 PG (27.0-31.0); MEAN CORPUSCULAR HGB CONC 33.1 g/dL (33.0-36.5); MEAN CORPUSCULAR VOLUME 84.2 FL (78-98); MEAN PLATELET VOLUME 6.8 FL (7.4-10.4); MONOCYTES # (AUTO) 0.4 X10'3 (0-0.9); MONOCYTES % (AUTO) 4.9 % (2-12); NEUTROPHILS # (AUTO) 3.9 X10'3 (1.8-7.7); NEUTROPHILS % (AUTO) 52.7 % (42-75); PRE OP HEMATOCRIT 39.7 % (35.0-45.0); PRE OP HEMOGLOBIN 13.1 g/dL (12.0-16.0); PRE OP PLATELET COUNT 247 X10'3 (140-440); RED BLOOD COUNT 4.72 X10'6 (4.20-5.60); RED CELL DISTRIBUTION WIDTH 16.6 % (11.5-14.5)
[2022-01-13 13:53] LABS: ALBUMIN 4.1 G/DL (3.4-5.0); ALBUMIN/GLOBULIN RATIO 1.3 (1.1-1.5); ALKALINE PHOSPHATASE 71 IU/L (46-116); BLOOD UREA NITROGEN 13 MG/DL (7-18); BUN/CREATININE RATIO 13.4 (6.6-38.0); CALCIUM 9.4 MG/DL (8.5-10.1); CHLORIDE 102 MMOL/L (99-107); CREATININE 0.97 MG/DL (0.40-0.90); PRE OP ALT 43 U/L (30-65); PRE OP ANION GAP 5 (8-16); PRE OP AST 39 U/L (10-37); PRE OP BILIRUB, TOTAL 0.5 MG/DL (0.0-1.0); PRE OP GLUCOSE 97 MG/DL (70-104); PRE OP POTASSIUM 4.2 MMOL/L (3.4-5.1); PRE OP SODIUM 136 MMOL/L (135-145); TOTAL CARBON DIOXIDE 29.4 MMOL/L (24-32); TOTAL PROTEIN 7.3 G/DL (6.4-8.2); eGFR 60 ML/MIN
[~2022-01-22] VITALS: Ht 152.4 cm; Wt 84.8 kg
[2022-01-22] MEDS ORDERED: ceFAZolin inj. 2,000 MG in dextrose 5%-water 100 ML IV ONE (05:30)
[2022-01-22] MEDS ORDERED: DOCUMENT DATE & TIME OF BETA-BLOCKER PO ONE (05:30)
[2022-01-22] MEDS ORDERED: famotidine 20mg tablet PO ONE (05:30)
[2022-01-22] MEDS ORDERED: BUPIVAcaine/PF 2.5 mg/ml (0.25%) 30ml vial ONE (06:50)
[2022-01-22] MEDS ORDERED: LIDOcaine 0.5% (5mg/ml) 50ml vial ONE (07:17)
[2022-01-22] MEDS ORDERED: fentaNYL/PF 50MCG/1 ML 2ML syringe ONE (07:28)
[2022-01-22] MEDS ORDERED: midazolam 1 mg/ML 2ml injection ONE (07:28)
[2022-01-22] MEDS ORDERED: morphine 4 MG/ML inj SYRINge IV PRN (07:55)
[2022-01-22] MEDS ORDERED: proCHLORperazine 10 MG/2 ml inj IV PRN (07:55)
[2022-01-22] MEDS ORDERED: ondansetron/PF 4mg/2ml inj IV PRN (07:55)
[2022-01-22] MEDS ORDERED: ringers solution, lacted 1,000 ML IV SCH (07:55)
[2022-01-22] MEDS ORDERED: meperidine/PF 25mg/ml syringe IV PRN ×3 (07:55)
[2022-01-22] MEDS ORDERED: morphine 2 MG/ML inj. syringe IV PRN (07:55)
[2022-01-22] MEDS ORDERED: propofol inj 20 ML IV ONE (08:02)
[2022-01-22 08:04] VITALS: BP 142/90
--- NOTE | 2022-01-22 08:04 | NUR ---
Received from OR via , accompanied by Anesthesiologist DR. CALIXTO and report given by Anesthesiolgist. VSS. PATIENT RESPONDS TO STIMULI. IV IN RIGHT WRIST 20G NO ISSUES. ELEVATED L HAND AND ICED
[2022-01-22 08:10] VITALS: BP 145/89
[2022-01-22] MEDS ORDERED: meperidine/PF 25mg/ml syringe ONE (08:18)
[2022-01-22 08:20] VITALS: BP 152/94
[2022-01-22 08:30] VITALS: BP 132/89
[2022-01-22 08:38] VITALS: BP 134/74
[2022-01-22 08:39] VITALS: BP 134/74
--- NOTE | 2022-01-22 08:54 | NUR ---
PATIENT MEETS DISCHARGE CRITERIA. VSS. PATIENT STATES NO PAIN. IV DC'D WITH NO ISSUES. WHEELED PATIENT TO THEIR SPOUSES CAR
== END 2022-01-22 08:54 | disposition home or self-care (01) ==
LOC: PAS 05:26
PROVIDERS: ATTEND Orthopaedic Surgery Hand Surgery
DX: G56.02 Carpal tunnel syndrome, left upper limb (principal); G56.22 Lesion of ulnar nerve, left upper limb; K21.9 Gastro-esophageal reflux disease without esophagitis; F41.9 Anxiety disorder, unspecified; Z79.899 Other long term (current) drug therapy; Z95.1 Presence of aortocoronary bypass graft; Z90.49 Acquired absence of other specified parts of digestive tract; Z90.710 Acquired absence of both cervix and uterus; E03.9 Hypothyroidism, unspecified
CPT/HCPCS: 29848; 36415; 64718; 80053; 82948; 85025; J0690; J2175; J2250; J2704; J3010; J3490; J7030; J7060; J7120; Z7506; Z7512; A4215; A6449; A7000

== ENCOUNTER 2022-02-20 17:58 | Emergency (ER) | payer BC, MEDICAID ==
[~2022-02-20] VITALS: Ht 152.4 cm; Wt 90.9 kg
[~2022-02-20 17:58] MED LIST changes: -ringers solution, lacted 1,000 ML IV SCH
[2022-02-20] MEDS ORDERED: dexamethasone sod phosphate 10mg/ml inj IV STA (20:38)
[2022-02-20 22:04] LABS: BASOPHILS % (AUTO) 0.5 % (0-1); EOSINOPHILS # (AUTO) 0.1 X10'3 (0-0.9); EOSINOPHILS % (AUTO) 1.4 % (0-6); HEMATOCRIT 34.8 % (35.0-45.0); HEMOGLOBIN 11.5 g/dl (12.0-16.0); LYMPHOCYTES # (AUTO) 1.8 X10'3 (1.1-4.8); LYMPHOCYTES % (AUTO) 23.3 % (21-51); MEAN CORPUSCULAR HEMOGLOBIN 27.6 PG (27.0-31.0); MEAN CORPUSCULAR VOLUME 83.8 FL (78-98); MEAN PLATELET VOLUME 6.6 FL (7.4-10.4); MONOCYTES # (AUTO) 0.4 X10'3 (0-0.9); MONOCYTES % (AUTO) 5.3 % (2-12); NEUTROPHILS # (AUTO) 5.4 X10'3 (1.8-7.7); NEUTROPHILS % (AUTO) 69.5 % (42-75); PLATELET COUNT 227 X10'3 (140-440); RED BLOOD COUNT 4.15 X10'6 (4.20-5.60); RED CELL DISTRIBUTION WIDTH 16.1 % (11.5-14.5); WHITE BLOOD COUNT 7.8 X10'3 (4.5-11.0)
[2022-02-20 22:24] LABS: ALANINE AMINOTRANSFERASE 17 U/L (12-78); ALBUMIN 3.4 G/DL (3.4-5.0); ALKALINE PHOSPHATASE 66 IU/L (46-116); ANION GAP 9 (8-16); ASPARTATE AMINO TRANSFERASE 15 U/L (10-37); BILIRUBIN,TOTAL 0.3 MG/DL (0.1-1.0); BLOOD UREA NITROGEN 13 MG/DL (7-18); BUN/CREATININE RATIO 16.7 (6.6-38.0); CALCIUM 8.9 MG/DL (8.5-10.1); CHLORIDE 102 MMOL/L (99-107); CREATININE 0.78 MG/DL (0.40-0.90); GLUCOSE 250 MG/DL (70-104); POTASSIUM 3.7 MMOL/L (3.5-5.1); SODIUM 137 MMOL/L (135-145); TOTAL CARBON DIOXIDE 26.2 MMOL/L (24-32); TOTAL PROTEIN 6.8 G/DL (6.4-8.2); eGFR 77 ML/MIN
[2022-02-20] MEDS ORDERED: iohexol 300mg/ml 100ml inj. ONE (22:36)
[2022-02-20] MEDS ORDERED: diphenhydrAMINE 50 mg/ml inj IV ONE (22:50)
[2022-02-21] MEDS ORDERED: diphenhydrAMINE 50 mg/ml inj IV ONE
[2022-02-21] MEDS ORDERED: PRED10TA23 PO (00:07)
[2022-02-21] MEDS ORDERED: LIDOcaine Viscous 15ml cup MM ONE (00:10)
[2022-02-21 00:56] VITALS: BP 132/72
== END 2022-02-21 01:00 | disposition home or self-care (01) ==
LOC: ER 18:00
DX: J02.9 Acute pharyngitis, unspecified (principal); Z20.822 Contact with and (suspected) exposure to COVID-19; C12 Malignant neoplasm of pyriform sinus; I10 Essential (primary) hypertension; E78.00 Pure hypercholesterolemia, unspecified; E11.9 Type 2 diabetes mellitus without complications; G89.29 Other chronic pain; Z88.6 Allergy status to analgesic agent; Z88.8 Allergy status to other drugs, medicaments and biological substances; Z91.041 Radiographic dye allergy status; Z90.49 Acquired absence of other specified parts of digestive tract; Z98.890 Other specified postprocedural states; Z90.710 Acquired absence of both cervix and uterus
CPT/HCPCS: 36415; 70360; 70491; 80053; 85025; 87081; 87502; 87503; 87635; 87880; 96374; 96375; 96376; 99285; C9803; J1100; J1200; Q9967

== ENCOUNTER 2022-08-17 21:46 | Emergency (ER) | payer BC, MEDICAID ==
[~2022-08-17] VITALS: Ht 152.4 cm; Wt 84.0 kg
[2022-08-17 21:53] VITALS: BP 124/72
== END 2022-08-18 00:42 | disposition home or self-care (01) ==
LOC: ER 21:46
DX: R60.0 Localized edema (principal); E78.00 Pure hypercholesterolemia, unspecified; E11.9 Type 2 diabetes mellitus without complications; F41.9 Anxiety disorder, unspecified; Z88.5 Allergy status to narcotic agent; Z91.013 Allergy to seafood; Z79.899 Other long term (current) drug therapy
CPT/HCPCS: 82948; 99283

== ENCOUNTER 2024-04-09 06:08 | Day surgery (SDC) | payer BC, MEDICAID ==
[2024-04-05 11:57] LABS: BASOPHILS % (AUTO) 0.9 % (0-1); EOSINOPHILS # (AUTO) 0.1 X10'3 (0-0.9); EOSINOPHILS % (AUTO) 1.3 % (0-6); LYMPHOCYTES # (AUTO) 1.6 X10'3 (1.1-4.8); LYMPHOCYTES % (AUTO) 31.9 % (21-51); MEAN CORPUSCULAR HEMOGLOBIN 23.9 PG (27.0-31.0); MEAN CORPUSCULAR HGB CONC 32.3 g/dL (33.0-36.5); MEAN CORPUSCULAR VOLUME 74.1 FL (78-98); MEAN PLATELET VOLUME 6.9 FL (7.4-10.4); MONOCYTES # (AUTO) 0.3 X10'3 (0-0.9); NEUTROPHILS # (AUTO) 3.1 X10'3 (1.8-7.7); NEUTROPHILS % (AUTO) 60.9 % (42-75); PRE OP HEMATOCRIT 35.9 % (35.0-45.0); PRE OP HEMOGLOBIN 11.6 g/dL (12.0-16.0); PRE OP PLATELET COUNT 303 X10'3 (140-440); PRE OP WHITE BLOOD COUNT 5.1 10'3 (4.8-10.8); RED BLOOD COUNT 4.85 X10'6 (4.20-5.60); RED CELL DISTRIBUTION WIDTH 16.7 % (11.5-14.5)
[2024-04-05 12:10] LABS: ALBUMIN 3.9 G/DL (3.4-5.0); ALBUMIN/GLOBULIN RATIO 1.3 (1.1-1.5); ALKALINE PHOSPHATASE 91 IU/L (46-116); BLOOD UREA NITROGEN 12 MG/DL (7-18); BUN/CREATININE RATIO 12.6 (10.0-20.0); CALCIUM 9.3 MG/DL (8.5-10.1); CHLORIDE 106 MMOL/L (99-107); CREATININE 0.95 MG/DL (0.40-0.90); PRE OP ALT 19 U/L (30-65); PRE OP ANION GAP 8 (8-16); PRE OP AST 14 U/L (10-37); PRE OP BILIRUB, TOTAL 0.3 MG/DL (0.0-1.0); PRE OP GLUCOSE 152 MG/DL (70-104); PRE OP POTASSIUM 3.7 MMOL/L (3.4-5.1); PRE OP SODIUM 141 MMOL/L (135-145); TOTAL CARBON DIOXIDE 26.9 MMOL/L (24-32); TOTAL PROTEIN 6.9 G/DL (6.4-8.2); eGFR 61 ML/MIN
[~2024-04-09] VITALS: Ht 152.4 cm; Wt 88.6 kg
[2024-04-09] VITALS (7 sets, daily range): BP systolic 90–107; BP diastolic 47–63; PULSE 57–65; RESP 12–16; TEMP 97.3; O2SAT 95–100
[2024-04-09] MEDS: DOCUMENT DATE & TIME OF BETA-BLOCKER PO ONE (05:00)
[~2024-04-09 06:08] MED LIST changes: +ASPI-611 PO; +CLOP75TA33 PO; +DULO-31 PO; +EMPA25TA PO; +ERGO400C PO; +EZET10TA6 PO; -INSU100I45 SQ; +INSU100I61 SQ; +INSULIN PUMP SUBCUT; +ISOS60TA71 PO; +LEVO175C2 PO; +LOP12.5T PO; +METF-436 PO; -ROSU40TA22 PO; +ROSU40TA89 PO; +tranexamic acid 1gm/0.7% sal. 100 ML IV ONE
[2024-04-09] MEDS ORDERED: BUPIVAcaine/PF 2.5mg/ml (0.25%) 10ml vial ONE (06:57)
[2024-04-09] MEDS ORDERED: LIDOcaine 1% (10mg/ml) 2ml vial ONE (06:57)
[2024-04-09] MEDS ORDERED: BUPIVAcaine 2.5mg/ml inj 50ml vial (contains preservative) ONE (06:57)
[2024-04-09] MEDS: ringers solution, lacted 1,000 ML IV SCH (07:15)
[2024-04-09] MEDS: ceFAZolin 2gm in dextrose, iso 50 ML IV ONE (07:15)
[2024-04-09] MEDS: famotidine 20mg tablet PO ONE (07:15)
[2024-04-09] MEDS ORDERED: fentaNYL/PF 50MCG/1 ML 2ML syringe ONE (07:53)
[2024-04-09] MEDS ORDERED: midazolam 1 mg/ML 2ml injection ONE (08:00)
[2024-04-09] MEDS ORDERED: ringers solution, lacted 1,000 ML IV SCH (08:00)
[2024-04-09] MEDS ORDERED: morphine 4 MG/ML inj SYRINge IV PRN (08:00)
[2024-04-09] MEDS ORDERED: proCHLORperazine 10 MG/2 ml inj IV PRN (08:00)
[2024-04-09] MEDS ORDERED: fentaNYL/PF 50MCG/1 ML 2ML syringe IV PRN ×2 (08:00)
[2024-04-09] MEDS ORDERED: propofol inj 20 ML IV ONE (08:00)
[2024-04-09] MEDS: morphine 2 MG/ML inj. syringe IV PRN (08:36)
[2024-04-09] MEDS: acetaminophen 1,000mg/100ml IV 100 ML IV ONE (08:37)
[2024-04-09] MEDS: ondansetron/PF 4mg/2ml inj IV PRN (08:42)
== END 2024-04-09 09:15 | disposition home or self-care (01) ==
LOC: PAS 06:08 → MERGE 08:00 → PAS 09:15
PROVIDERS: ATTEND Orthopaedic Surgery Hand Surgery
DX: M72.0 Palmar fascial fibromatosis [Dupuytren] (principal); I25.10 Atherosclerotic heart disease of native coronary artery without angina pectoris; E11.9 Type 2 diabetes mellitus without complications; E78.00 Pure hypercholesterolemia, unspecified; E78.5 Hyperlipidemia, unspecified; F41.9 Anxiety disorder, unspecified; I10 Essential (primary) hypertension; Z79.899 Other long term (current) drug therapy; Z90.49 Acquired absence of other specified parts of digestive tract; Z98.890 Other specified postprocedural states; Z90.710 Acquired absence of both cervix and uterus; Z91.041 Radiographic dye allergy status; Z95.5 Presence of coronary angioplasty implant and graft
CPT/HCPCS: 26123; 26125; 36415; 80053; 82948; 85025; 93005; J0131; J0690; J2003; J2250; J2270; J2405; J2704; J3010; J3490; J7030; J7120; Z7506; Z7512; A4215; A6449

== ENCOUNTER 2024-07-25 17:44 | Emergency (ER) | payer BC, MEDICAID ==
[~2024-07-25] VITALS: Ht 154.9 cm; Wt 89.3 kg
[~2024-07-25 17:44] MED LIST changes: -ASPI-1265 PO; -DULO30CA52 PO; -ESTR0.5T28 PO; -HYDR50TA65 PO; -INSU100I31 SUBCUT; -INSU100I61 SQ; -INSU100I8 SQ; -LEVO125T8 PO; -LEVO175C2 PO; +LEVO175C3 PO; -METF-900 PO; -METO25TA6 PO; -TRAZ-251 PO; -tranexamic acid 1gm/0.7% sal. 100 ML IV ONE
[2024-07-25 18:00] VITALS: BP 126/63; PULSE 92; O2SAT 99
--- NOTE | 2024-07-25 20:14 | RADIOLOGY REPORT ---
Clinical History ANKLE PAIN LEFT Comparison None Without Contrast MARY GREGORIO, [id number] TECHNIQUE: view of the FINDINGS: There is no acute fracture or dislocation. There is posterior and plantar calcaneal enthesophytes. Joint spaces are preserved. Well-corticated ossific fragment at the medial clear space could be consistent with sequela of chroni c injury. Soft tissue is unremarkable. No radiopaque foreign body seen. IMPRESSION: No acute osseous abnormality. Well-corticated ossific fragment at the medial clear space could be consistent with sequela of chroni c injury. This report was electronically signed by Moose Ventura MD on 07/25/2024 8:10:30 PM.
--- NOTE | 2024-07-25 20:41 | Physician Documentation ---
History of Present Illness ~ Chief Complaint: Ankle pain Stated Complaint: LEFT ANKLE PAIN Time Seen by MD: 18:09 Primary Medical Doctor: Damir MONTEZ Patient is seen today with left ankle pain after rolling her ankle earlier today. Patient states she just got out of a cast after she suffered an avulsion fracture of the same ankle after rolling it a few months ago. Patient states she has been out of the cast only 70 days now. Patient denies having done any physical therapy. Patient has no new or other concern or complaint at this time. Patient denies any numbness or tingling of the left ankle. Tetanus witin 5 years: Yes Medication Reconciliation Allergies: Coded Allergies: liraglutide (Verified Allergy, Severe, got pancreatitis, 07/25/24) red dye (Unverified Allergy, Mild, RASH, 07/25/24) insulin glargine (Verified Allergy, Unknown, HIVES AT INJECTION SITE, 07/25/24) iodine (Verified Allergy, Unknown, 07/25/24) shellfish derived (Verified Allergy, Unknown, 07/25/24) Uncoded Allergies: ANIMAL BASED INSULIN (Allergy, Unknown, 04/06/24) Scheduled Aspirin (Aspir 81), 1 TAB PO DAILY, (Reported) Cholecalciferol (Vitamin D3) (Vitamin D3), 1 CAP PO DAILY, (Reported) Clopidogrel Bisulfate (Clopidogrel), 1 TAB PO DAILY, (Reported) Duloxetine HCl (Duloxetine HCl), 1 CAP PO QAM, (Reported) Duloxetine Hcl* (Cymbalta*), 60 MG PO QPM, (Reported) Empagliflozin (Jardiance), 1 TAB PO DAILY, (Reported) Ergocalciferol (Vitamin D), 1 CAP PO DAILY, (Reported) Ertugliflozin Pidolate (Steglatro), 1 TAB PO QAM, (Reported) Ezetimibe (Zetia), 15 MG PO DAILY, (Reported) Furosemide (Lasix), 1 TAB PO DAILY, (Reported) Isosorbide Mononitrate (Isosorbide Mononitrate Er), 1 TAB PO DAILY, (Reported) Levothyroxine Sodium (Levothyroxine), 1 CAP PO DAILY, (Reported) Metformin Hcl (Metformin Hcl), 2 TAB PO Q12H, (Reported) Metoprolol Tartrate (Lopressor tablet), 1 TAB PO Q12H, (Reported) Pantoprazole Sodium (Pantoprazole Sodium), 1 TAB PO DAILY, (Reported) Rosuvastatin Calcium (Rosuvastatin Calcium), 1 TAB PO DAILY, (Reported) [Insulin Pump], 100 UNITS SUBCUT DAILY, (Reported) Scheduled PRN Lorazepam (Ativan), 1 TAB PO Q12H PRN PRN for anxiety, (Reported) Tramadol Hcl (Tramadol Hcl), 1 TAB PO PRN PRN for pain, (Reported) Past Medical History Past Medical History: No Pertinent History, Coronary Artery Disease, High Cholesterol, Hypertension, Hemorrhoids, Diabetes, Chronic Pain, Anxiety Past Surgical History: angioplasty, appendectomy, cholecystectomy, gastric bypass, hysterectomy, orthopedic surgeries, other Other Past Surgical History: Cardiac stent, hemmorhoidectomy Patient History: (CAD) Coronary arteriosclerosis FATHER (DM Type 2) Diabetes mellitus type 2 MOTHER CLL (chronic lymphoid leukemia) MOTHER FH: hypertension FATHER MOTHER Kidney stone FATHER Smoking Status: Never smoker Alcohol Use: None Drug Use: none Lives with: Family Lives In: Home Occupation: employed Review of Systems Constitutional: Denies: chills, fever, weakness Eyes: Denies: pain, blurred vision ENT: Denies: ear pain, nose pain, throat pain, mouth pain Respiratory: Denies: cough, shortness of breath Cardiovascular: Denies: chest pain, palpitations Gastrointestinal: Denies: abdominal pain, nausea, vomiting Genitourinary: Denies: burning, dysuria Female Genitalia: Denies: vaginal discharge, pelvic pain Neurological: Denies: headache, dizziness Musculoskeletal: Denies: pain, swelling Integumentary: Denies: rash, lesions Allergic/Immunologic: Denies: hives, itching Hematologic/Lymphatic: Denies: no symptoms reported Psychiatric: Denies: depression, anxiety Physical Exam Vital Signs: Temperature: 98.4, Heart Rate: 92, Respiratory Rate: 14, BP: 126/63, Pulse Oximetry: 99, Weight: 89.300 Physical Exam General: Awake and Alert, no acute distress. HEENT: Conjunctiva pink, Sclera clear, Mucus Membranes moist. Neck: Supple without masses and tenderness. Resp: Unlabored. Lungs clear to auscultation bilaterally. Heart: Regular Rate and rhythm, normal S1 and S2 without murmur, rub or gallop. Musculoskeletal: Patient on exam does have significant tenderness to palpation of the anterior lateral aspect of the left ankle just distal to the lateral malleoli/distal fibula. Patient is neurovascularly intact distally. Motor function is intact distally. Range of motion is decreased due to pain. Extremities: No cyanosis,clubbing or edema. Skin: Warm and Dry. Progress Results/Orders Results/Orders Vital Signs 07/25/24 18:00 Temp 98.4 Pulse 92 Resp 14 B/P (MAP) 126/63 Pulse Ox 99 EKG/XRAY/CT/US/VASC/MRI Bone/Soft Tissue X-Ray (Ext.) : Additional Comment X-ray interpretation of left ankle interpreted by myself today shows no sign of acute fracture, bones in anatomic alignment, no osteolytic or blastic lesions, there is a well corticated ossific fragment at the medial clear space consistent with chronic injury. DIAGNOSTIC RADIOLOGY Patient: MARY GREGORIO Medical Record: [id number] : 1965, Age: 58 Sex: Female Location: ER Patient Status: [facility] ER Service Date/Time: 07/25/241834 Ordering Physician: EBENEZER BUSTAMANTE MD Exam: ANKLE, COMPLETE(3VW MIN) Clinical History ANKLE PAIN LEFT Comparison None Without Contrast MARY GREGORIO, [id number] TECHNIQUE: view of the FINDINGS: There is no acute fracture or dislocation. There is posterior and plantar calcaneal enthesophytes. Joint spaces are preserved. Well-corticated ossific fragment at the medial clear space could be consistent with sequela of chronic injury. Soft tissue is unremarkable. No radiopaque foreign body seen. IMPRESSION: No acute osseous abnormality. Well-corticated ossific fragment at the medial clear space could be consistent with sequela of chronic injury. This report was electronically signed by Moose Sultana MD on 07/25/2024 8:10:30 PM. Electronically Signed by:MOOSE SULTANA MD Date & Time: 07/25/242013 Dictated by: MOOSE SULTANA MD Dictation date and time: 07/25/242013 Primary Care Provider: NO PRIMARY CARE PROVIDER cc: EBENEZER BUSTAMANTE MD ~ Medical Decision Making Findings Patient is seen today with left ankle pain after rolling her ankle earlier toda y. Patient states she just got out of a cast after she suffered an avulsion fracture of the same ankle after rolling it a few months ago. Patient states she has been out of the cast only 70 days now. Patient denies having done any physical therapy. Patient has no new or other concern or complaint at this time. Patient denies any numbness or tingling of the left ankle. Patient did have x-ray of left ankle that showed no sign of acute fracture but did have posttraumatic changes visible that are chronic in nature. Patient will follow up with primary in 2-5 days if no better as needed sooner. Patient will rest, ice, compress, and elevate left ankle off and on every 20-30 minutes for the next 2-3 days. Patient will take Tylenol ibuprofen for symptomatic pain relief. I advised patient follow up with physical therapy for eval and treatment of left ankle. Departure Disposition: HOME / SELF CARE / HOMELESS Impression: Primary Impression: Sprain of ankle Qualified Codes: S93.492A - Sprain of other ligament of left ankle, initial encounter Condition: Improved Discharge Instructions: Ankle Sprain Additional Instructions: Patient did have x-ray of left ankle that showed no sign of acute fracture but did have posttraumatic changes visible that are chronic in nature. Patient will follow up with primary in 2-5 days if no better as needed sooner. Patient will rest, ice, compress, and elevate left ankle off and on every 20-30 minutes for the next 2-3 days. Patient will take Tylenol ibuprofen for symptomatic pain relief. I advised patient follow up with physical therapy for eval and treatment of left ankle. Referrals: NO PRIMARY CARE PROVIDER (PCP) Signature Scribe Signature: No scribe Attestation: No scribe RICCARDO SEBASTIAN PAC July 25, 2024 20:41
[2024-07-25 20:58] VITALS: RESP 16; TEMP 98.4
== END 2024-07-25 21:00 | disposition home or self-care (01) ==
LOC: ER 17:45
DX: S93.402A Sprain of unspecified ligament of left ankle, initial encounter (principal); I25.10 Atherosclerotic heart disease of native coronary artery without angina pectoris; F41.9 Anxiety disorder, unspecified; Z90.49 Acquired absence of other specified parts of digestive tract; Z88.8 Allergy status to other drugs, medicaments and biological substances; Z90.710 Acquired absence of both cervix and uterus; Z91.041 Radiographic dye allergy status; Z95.5 Presence of coronary angioplasty implant and graft; Z98.84 Bariatric surgery status; Z79.82 Long term (current) use of aspirin; X50.1XXA Overexertion from prolonged static or awkward postures, initial encounter; Y93.89 Activity, other specified; Y92.89 Other specified places as the place of occurrence of the external cause; Y99.8 Other external cause status
CPT/HCPCS: 73610; 99283; L1930